=== PATIENT | male | born 1945 | race Caucasian/White ===

== ENCOUNTER 2020-04-21 08:19 | Outpatient (REF) | payer MEDICARE, SELFPAY ==
[2020-04-21 09:24] LABS: MANUAL DIFF FLAG NO
[2020-04-21 09:45] LABS: Basophils Percent Auto 0.3 % (0-2); Eosinophils Absolute Auto 0.1 X10*3/uL (0.0-0.4); Eosinophils Percent Auto 1.2 % (0-4); Hematocrit 45.4 % (42-52); Hemoglobin 14.9 g/dl (14.0-18.0); Imm Gran Abs Auto 0.02 X10*3/uL (0.00-0.03); Imm Gran Pct Auto 0.3 % (0.0-0.4); Lymphocytes Absolute Auto 3.1 X10*3/uL (1.2-4.9); Lymphocytes Percent Auto 43.1 % (20-40); Mean Corpuscular HGB Conc 32.8 g/dl (31.0-36.0); Mean Corpuscular Volume 91.5 fL (80-98); Mean Platelet Volume 10.6 fL (9.4-12.4); Monocytes Absolute Auto 0.6 X10*3/uL (0.1-1.2); Monocytes Percent Auto 8.7 % (2-11); Neutrophils Absolute Auto 3.4 X10*3/uL (2.0-8.3); Neutrophils Percent Auto 46.4 % (45-73); Platelet Count 201 X10*3/uL (160-400); Red Blood Count 4.96 X10*6/uL (4.60-5.80); Red Cell Distribution Width 12.2 % (11.0-16.0); White Blood Count 7.2 X10*3/uL (4.8-10.8)
[2020-04-21 10:08] LABS: Estimated Average Glucose 114 mg/dL; Hemoglobin A1c % 5.6 %
[2020-04-21 10:14] LABS: Appearance Urine CLEAR; Color Urine YELLOW; Glucose Urine UA NEG (NEG); Leukocyte Esterase Urine NEG (NEG); Nitrite Urine NEG (NEG); Urine Blood NEG (NEG); Urine Ketones NEG (NEG); Urine Protein NEG (NEG-TRACE)
[2020-04-21 10:21] LABS: Alanine Aminotransferase 17 U/L (0-40); Albumin Level 4.4 g/dL (3.5-5.0); Alkaline Phosphatase 62 U/L (39-117); Anion Gap 13 (12-20); Aspartate Amino Transferase 17 U/L (5-37); Bilirubin Total 1.2 mg/dL (0.0-1.0); Blood Urea Nitrogen 13 mg/dL (9-16); Calcium 8.8 mg/dL (8.4-10.2); Carbon Dioxide 28 mmol/L (22-29); Chloride 102 mmol/L (96-108); Cholesterol 214 mg/dL; Estimated Glomerular Filt Rate > 60; Glucose Fasting 102 mg/dL (60-99); HDL Cholesterol 45 mg/dL; LDL Cholesterol Calculated 139 mg/dl; Sodium 139 mmol/L (135-145); Total Protein 7.2 g/dL (6.5-8.0); Triglycerides 151 mg/dL
[2020-04-21 10:30] LABS: TSH reflex Free T4 3.18 mIU/mL (0.32-4.0)
[2020-04-21 10:51] LABS: Mucus Urine 1+ /LPF; RBC Urine 0 /HPF (0); Squamous Epithelial Cell Urine TRACE /LPF; WBC Urine 0-2 /HPF (0-4)
== END 2020-04-21 08:20 | disposition home or self-care (01) ==
LOC: HO.LAB 08:19
PROVIDERS: PCP Internal Medicine; Visit Provider Internal Medicine
DX: I10 Essential (primary) hypertension (principal); E78.2 Mixed hyperlipidemia; R73.01 Impaired fasting glucose; K21.9 Gastro-esophageal reflux disease without esophagitis
CPT/HCPCS: 36415; 80053; 80061; 81001; 83036; 84443; 85025

== ENCOUNTER 2020-09-07 07:42 | Outpatient (REF) | payer MEDICARE, SELFPAY ==
[2020-09-07 08:29] LABS: MANUAL DIFF FLAG NO
[2020-09-07 08:33] LABS: Basophils Percent Auto 0.3 % (0-2); Eosinophils Absolute Auto 0.2 X10*3/uL (0.0-0.4); Eosinophils Percent Auto 2.1 % (0-4); Hematocrit 42.9 % (42-52); Hemoglobin 14.4 g/dl (14.0-18.0); Imm Gran Abs Auto 0.01 X10*3/uL (0.00-0.03); Imm Gran Pct Auto 0.1 % (0.0-0.4); Lymphocytes Percent Auto 42.3 % (20-40); Mean Corpuscular HGB Conc 33.6 g/dl (31.0-36.0); Mean Corpuscular Hemoglobin 30.6 pg (27.0-33.0); Mean Corpuscular Volume 91.1 fL (80-98); Mean Platelet Volume 10.3 fL (9.4-12.4); Monocytes Absolute Auto 0.6 X10*3/uL (0.1-1.2); Monocytes Percent Auto 8.7 % (2-11); Neutrophils Absolute Auto 3.3 X10*3/uL (2.0-8.3); Neutrophils Percent Auto 46.5 % (45-73); Platelet Count 188 X10*3/uL (160-400); Red Blood Count 4.71 X10*6/uL (4.60-5.80); Red Cell Distribution Width 12.3 % (11.0-16.0); White Blood Count 7.1 X10*3/uL (4.8-10.8)
[2020-09-07 08:47] LABS: Glucose Urine UA NEG (NEG); Leukocyte Esterase Urine NEG (NEG); Nitrite Urine NEG (NEG); Urine Blood NEG (NEG); Urine Ketones 5 MG/DL (NEG); Urine Protein NEG (NEG-TRACE)
[2020-09-07 08:48] LABS: Appearance Urine CLEAR; Color Urine YELLOW
[2020-09-07 08:55] LABS: Alanine Aminotransferase 15 U/L (0-40); Albumin Level 4.4 g/dL (3.5-5.0); Alkaline Phosphatase 62 U/L (39-117); Anion Gap 13 (12-20); Aspartate Amino Transferase 17 U/L (5-37); Bilirubin Total 1.1 mg/dL (0.0-1.0); Blood Urea Nitrogen 15 mg/dL (9-16); Calcium 8.9 mg/dL (8.4-10.2); Carbon Dioxide 28 mmol/L (22-29); Chloride 103 mmol/L (96-108); Cholesterol 214 mg/dL; Estimated Glomerular Filt Rate > 60; Glucose Fasting 105 mg/dL (60-99); HDL Cholesterol 45 mg/dL; LDL Cholesterol Calculated 138 mg/dl; Potassium 4.3 mmol/L (3.3-5.1); Sodium 140 mmol/L (135-145); Total Protein 7.1 g/dL (6.5-8.0); Triglycerides 157 mg/dL
== END 2020-09-07 07:43 | disposition home or self-care (01) ==
LOC: HO.LAB 07:42
PROVIDERS: PCP Internal Medicine; Visit Provider Internal Medicine
DX: I10 Essential (primary) hypertension (principal); K21.9 Gastro-esophageal reflux disease without esophagitis; E78.2 Mixed hyperlipidemia; R73.01 Impaired fasting glucose
CPT/HCPCS: 36415; 80053; 80061; 81003; 85025

== ENCOUNTER 2021-03-08 07:44 | Outpatient (REF) | payer MEDICARE, SELFPAY ==
[2021-03-08 07:56] LABS: MANUAL DIFF FLAG NO
[2021-03-08 08:39] LABS: Basophils Percent Auto 0.1 % (0-2); Eosinophils Absolute Auto 0.2 X10*3/uL (0.0-0.4); Eosinophils Percent Auto 2.5 % (0-4); Hematocrit 47.4 % (42-52); Hemoglobin 15.5 g/dl (14.0-18.0); Imm Gran Abs Auto 0.01 X10*3/uL (0.00-0.03); Imm Gran Pct Auto 0.1 % (0.0-0.4); Lymphocytes Absolute Auto 4.2 X10*3/uL (1.2-4.9); Lymphocytes Percent Auto 49.1 % (20-40); Mean Corpuscular HGB Conc 32.7 g/dl (31.0-36.0); Mean Corpuscular Hemoglobin 29.9 pg (27.0-33.0); Mean Corpuscular Volume 91.5 fL (80-98); Mean Platelet Volume 10.6 fL (9.4-12.4); Monocytes Absolute Auto 0.8 X10*3/uL (0.1-1.2); Monocytes Percent Auto 9.4 % (2-11); Neutrophils Absolute Auto 3.3 X10*3/uL (2.0-8.3); Neutrophils Percent Auto 38.8 % (45-73); Platelet Count 233 X10*3/uL (160-400); Red Blood Count 5.18 X10*6/uL (4.60-5.80); Red Cell Distribution Width 12.5 % (11.0-16.0); White Blood Count 8.5 X10*3/uL (4.8-10.8)
[2021-03-08 08:42] LABS: Appearance Urine CLEAR; Color Urine YELLOW; Glucose Urine UA NEG (NEG); Leukocyte Esterase Urine NEG (NEG); Nitrite Urine NEG (NEG); Specific Gravity - Urine 1.015 (1.005-1.025); Urine Blood NEG (NEG); Urine Ketones 5 MG/DL (NEG); Urine Protein NEG (NEG-TRACE)
[2021-03-08 08:59] LABS: Estimated Average Glucose 114 mg/dL; Hemoglobin A1c % 5.6 %
[2021-03-08 09:07] LABS: Alanine Aminotransferase 19 U/L (0-40); Albumin Level 4.5 g/dL (3.5-5.0); Alkaline Phosphatase 63 U/L (39-117); Anion Gap 12 (12-20); Aspartate Amino Transferase 19 U/L (5-37); Bilirubin Total 0.9 mg/dL (0.0-1.0); Blood Urea Nitrogen 13 mg/dL (9-16); Calcium 9.3 mg/dL (8.4-10.2); Carbon Dioxide 28 mmol/L (22-29); Chloride 106 mmol/L (96-108); Cholesterol 237 mg/dL; Estimated Glomerular Filt Rate > 60; Glucose Fasting 105 mg/dL (60-99); HDL Cholesterol 47 mg/dL; LDL Cholesterol Calculated 162 mg/dl; Potassium 4.4 mmol/L (3.3-5.1); Sodium 142 mmol/L (135-145); Total Protein 7.2 g/dL (6.5-8.0); Triglycerides 141 mg/dL
[2021-03-08 09:20] LABS: TSH reflex Free T4 3.57 uIU/mL (0.32-4.0)
== END 2021-03-08 07:45 | disposition home or self-care (01) ==
LOC: HO.LAB 07:44
PROVIDERS: PCP Internal Medicine; Visit Provider Internal Medicine
DX: I10 Essential (primary) hypertension (principal); E78.2 Mixed hyperlipidemia; R73.01 Impaired fasting glucose; K21.9 Gastro-esophageal reflux disease without esophagitis
CPT/HCPCS: 36415; 80053; 80061; 81003; 83036; 84443; 85025

== ENCOUNTER 2021-09-15 07:00 | Outpatient (REF) | payer MEDICARE, SELFPAY ==
[2021-09-15 07:34] LABS: Basophils Percent Auto 0.1 % (0-2); Eosinophils Absolute Auto 0.2 X10*3/uL (0.0-0.4); Hematocrit 42.7 % (42.0-52.0); Hemoglobin 14.1 g/dl (14.0-18.0); Imm Gran Abs Auto 0.02 X10*3/uL (0.00-0.03); Imm Gran Pct Auto 0.3 % (0.0-0.4); Lymphocytes Absolute Auto 3.3 X10*3/uL (1.2-4.9); Lymphocytes Percent Auto 43.4 % (20-40); MANUAL DIFF FLAG SCAN; Mean Corpuscular Hemoglobin 30.8 pg (27.0-33.0); Mean Corpuscular Volume 93.2 fL (80.0-98.0); Mean Platelet Volume 11.7 fL (9.4-12.4); Monocytes Absolute Auto 0.7 X10*3/uL (0.1-1.2); Monocytes Percent Auto 8.6 % (2-11); Neutrophils Absolute Auto 3.5 x10*3/uL (2.0-8.3); Neutrophils Percent Auto 45.6 % (45-73); PLT CLUMP 1; Red Blood Count 4.58 X10*6/uL (4.60-5.80); Red Cell Distribution Width 12.5 % (11.0-16.0); SCAN SMEAR FLAG 1
[2021-09-15 07:53] LABS: Alanine Aminotransferase 19 U/L (0-40); Albumin Level 4.2 g/dL (3.5-5.0); Alkaline Phosphatase 59 U/L (39-117); Anion Gap 11 (12-20); Aspartate Amino Transferase 24 U/L (5-37); Bilirubin Total 0.9 mg/dL (0.0-1.0); Blood Urea Nitrogen 12 mg/dL (9-16); Calcium 9.3 mg/dL (8.4-10.2); Carbon Dioxide 25 mmol/L (22-29); Chloride 107 mmol/L (96-108); Cholesterol 231 mg/dL; Estimated Glomerular Filt Rate > 60; Glucose Fasting 104 mg/dL (60-99); HDL Cholesterol 47 mg/dL; LDL Cholesterol Calculated 152 mg/dl; Potassium 4.4 mmol/L (3.3-5.1); Sodium 139 mmol/L (135-145); Total Protein 7.2 g/dL (6.5-8.0); Triglycerides 162 mg/dL
[2021-09-15 08:12] LABS: Appearance Urine CLEAR; Color Urine YELLOW; Glucose Urine UA NEG (NEG); Leukocyte Esterase Urine NEG (NEG); Nitrite Urine NEG (NEG); Urine Blood NEG (NEG); Urine Ketones NEG (NEG); Urine Protein NEG (NEG-TRACE)
[2021-09-15 08:15] LABS: TSH reflex Free T4 2.54 uIU/mL (0.32-4.0); Vitamin D 25-OH Total 31.9 ng/mL (>30)
[2021-09-15 08:55] LABS: White Blood Count 7.7 X10*3/uL (4.8-10.8)
[2021-09-15 08:56] LABS: Platelet Count 138 X10*3/uL (160-400); SLIDE REVIEW VERIFIED
== END 2021-09-15 07:01 | disposition home or self-care (01) ==
LOC: HO.LAB 07:00
PROVIDERS: PCP Internal Medicine; Visit Provider Internal Medicine
DX: I10 Essential (primary) hypertension (principal); E78.00 Pure hypercholesterolemia, unspecified; E55.9 Vitamin D deficiency, unspecified
CPT/HCPCS: 36415; 80053; 80061; 81003; 82306; 84443; 85025

== ENCOUNTER 2022-03-09 07:30 | Outpatient (REF) | payer MEDICARE, SELFPAY ==
[2022-03-09 07:54] LABS: MANUAL DIFF FLAG NO
[2022-03-09 08:00] LABS: Basophils Percent Auto 0.3 % (0-2); Eosinophils Absolute Auto 0.2 X10*3/uL (0.0-0.4); Eosinophils Percent Auto 2.4 % (0-4); Hematocrit 40.9 % (42.0-52.0); Hemoglobin 14.2 g/dl (14.0-18.0); Imm Gran Abs Auto 0.01 X10*3/uL (0.00-0.03); Imm Gran Pct Auto 0.1 % (0.0-0.4); Lymphocytes Absolute Auto 3.3 X10*3/uL (1.2-4.9); Lymphocytes Percent Auto 43.8 % (20-40); Mean Corpuscular HGB Conc 34.7 g/dl (31.0-36.0); Mean Corpuscular Hemoglobin 32.2 pg (27.0-33.0); Mean Corpuscular Volume 92.7 fL (80.0-98.0); Mean Platelet Volume 10.1 fL (9.4-12.4); Monocytes Absolute Auto 0.7 X10*3/uL (0.1-1.2); Monocytes Percent Auto 8.6 % (2-11); Neutrophils Absolute Auto 3.4 x10*3/uL (2.0-8.3); Neutrophils Percent Auto 44.8 % (45-73); Platelet Count 167 X10*3/uL (160-400); Red Blood Count 4.41 X10*6/uL (4.60-5.80); Red Cell Distribution Width 12.8 % (11.0-16.0); White Blood Count 7.5 X10*3/uL (4.8-10.8)
[2022-03-09 08:39] LABS: Alanine Aminotransferase 14 U/L (0-40); Albumin Level 4.5 g/dL (3.5-5.0); Alkaline Phosphatase 65 U/L (39-117); Anion Gap 15 (12-20); Aspartate Amino Transferase 18 U/L (5-37); Bilirubin Total 0.8 mg/dL (0.0-1.0); Blood Urea Nitrogen 14 mg/dL (9-16); Calcium 9.1 mg/dL (8.4-10.2); Carbon Dioxide 26 mmol/L (22-29); Chloride 105 mmol/L (96-108); Cholesterol 207 mg/dL; Estimated Glomerular Filt Rate > 60; Glucose Fasting 101 mg/dL (60-99); HDL Cholesterol 49 mg/dL; LDL Cholesterol Calculated 132 mg/dl; Sodium 142 mmol/L (135-145); Total Protein 7.1 g/dL (6.5-8.0); Triglycerides 131 mg/dL
[2022-03-09 08:45] LABS: TSH reflex Free T4 2.47 uIU/mL (0.32-4.0); Vitamin D 25-OH Total 32.3 ng/mL (>30)
[2022-03-09 10:09] LABS: Appearance Urine Clear; Color Urine Yellow; Glucose Urine UA Negative (Negative); Leukocyte Esterase Urine Negative (Negative); Nitrite Urine Negative (Negative); PH 5.5 (5.0-9.0); Specific Gravity - Urine 1.015 (1.005-1.025); Urine Blood Negative (Negative); Urine Ketones Negative (Negative); Urine Protein Negative (Neg-Trace)
== END 2022-03-09 07:31 | disposition home or self-care (01) ==
LOC: HO.LAB 07:30
PROVIDERS: PCP Internal Medicine; Visit Provider Internal Medicine
DX: E78.00 Pure hypercholesterolemia, unspecified (principal); E55.9 Vitamin D deficiency, unspecified; I10 Essential (primary) hypertension
CPT/HCPCS: 36415; 80053; 80061; 81003; 82306; 84443; 85025

== ENCOUNTER → 2022-05-27 13:53 | Outpatient (REF) | payer MEDICARE, SELFPAY ==
--- NOTE | 2022-05-27 13:56 | HM_ITS ---
* Total monitoring time 3 days. * Underlying rhythm is sinus. Average ventricular rate 60/Min. Range 41 to 93/Min. * About 60% the time, rate less than 60/Min. * Frequent PVCs with a burden of 3.5%. Occasional bigeminy, trigeminy and couplets. * Rare PACs with minimal burden. * Sleep time pauses up to 2.6 seconds, not significant. * No patient markers or diary. MTDD
--- NOTE | 2022-05-27 13:56 | CA_ITS ---
Transthoracic Echocardiogram Patient (Last, First, Middle): Marcial Robb V Gender: Male Date of : 1945 Age: 76 Procedure Date: 05/27/2022 Procedure Type: Transthoracic Echocardiogram Location: OP Height: 170.18 cm Weight: 68.95 kg BSA: 1.80 m2 Heart Rate: 61 bpm BP: 145 / 80 mmHg Clinical Training Specialist: SUZY Referring MD: Ion Kwong MD Symptoms: G45.9 - Transient cerebral ischemic attack, unspecified Study Quality: Adequate ECG Rhythm: Sinus Conclusions: - Normal left ventricular cavity size. There is normal left ventricular wall thickness. The left ventricular systolic function is low normal. The visually estimated ejection fraction is between 50-55%. - E/E prime ratio is between 8 and 15 consistent with indeterminate filling pressures. - Normal right ventricular cavity size. There is borderline right ventricular systolic function. - The left atrium is mildly dilated. - There is mild dilatation of the sinuses of Valsalva measuring 3.90 cm. Findings Left Ventricle Normal left ventricular cavity size. There is normal left ventricular wall thickness. The left ventricular systolic function is low normal. The visually estimated ejection fraction is between 50-55%. There is no evidence of regional wall motion abnormalities. Abnormal diastolic function is noted. Spectral Doppler is indicative of a pseudonormal filling pattern. E/E prime ratio is between 8 and 15 consistent with indeterminate filling pressures. Right Ventricle Normal right ventricular cavity size. There is borderline right ventricular systolic function. Atria The left atrium is mildly dilated. There is no evidence of interatrial shunt by color Doppler. Aortic Valve Normal aortic valve structure and function. There is no aortic valve stenosis. There is trace (trivial) aortic valve regurgitation. Mitral Valve The mitral valve appears normal. There is mild mitral valve regurgitation. There is no mitral valve stenosis. Pulmonic Valve The pulmonic valve is likely normal. Tricuspid Valve Normal tricuspid valve structure and function. There is trace tricuspid valve regurgitation. Normal right atrial pressure. There is no evidence of pulmonary hypertension. Great Vessels There is mild dilatation of the sinuses of Valsalva measuring 3.90 cm. The visualized portions of the pulmonary artery and branches are normal. Venous The inferior vena cava is normal in size and collapses greater than 50% with inspiration. Pericardium/Pleural There is no evidence of pericardial effusion. Prior Study Comparison No prior study available for comparison. Measurements 2D Linear Measurements IVSd: 0.76 0.6-0.9/0.6-1.0 cm LVIDd: 4.84 3.9-5.3/4.2-5.9 cm LVIDd Index: 2.69 2.4-3.2/2.2-3.1 cm/m2 LVIDs: 3.21 2.0-3.6 cm LVPWd: 0.85 0.7-1.1 cm LA Diam: 3.30 2.7-3.8/3.0-4.0 cm LAIDs Index: 1.83 1.5-2.3 cm/m2 LV Mass: 160.64 67-162/88-224 g LV Mass Index: 89.24 43-95/49-115 g/m2 LVOT Diam: 2.20 3.0+(-)1.3 cm 2D Systolic Function EF 4C: 54.90 >55% EF 2C: 53.60 >55% EF BiP: 55.60 >55% Mitral Valve MV Pk E: 0.78 MV PK A: 0.81 MV Decel Time: 208.00 E/A: 1.00 E'Lateral: 9.02 E'Medial: 7.27 E/E' Med: 10.80 E/E' Lat: 8.70 PHT: 61.00 MVA PHT: 3.61 Decel [place]: 3.78 Aortic Valve AoV Pk Caden: 1.17 AoV Mn Caden: 0.82 AoV VTI: 0.28 AoV Pk Grad: 5.00 Aov Mn Grad: 3.00 KYE Cont.VTI: 2.81 AI Pk Caden: 3.85 AI [place]: 2.64 LVOT LVOT Pk Caden: 0.85 LVOT Mn Caden: 0.57 LVOT VTI: 0.21 LVOT Pk Grad: 3.00 LVOT Mn Grad: 2.00 LVOT Diam: 2.20 LVOT Area: 3.80 Diastolic Function MV Pk E: 0.78 MV Pk A: 0.81 E/A: 1.00 E'Medial: 7.27 E/E' Med: 10.80 E' Laterial: 9.02 E/E' Lat: 8.70 Right Ventricle TAPSE (mm): 23.90 TVS' Caden: 10.80 Tricuspid Valve TR Pk Caden: 2.34 TR Pk Grad: 22.00 RA Press: 3.00 RVSP: 25.00 Great Vessels Aorta Sinus of Valsalva: 3.90 2.0-3.5 cm Ao Asc: 3.40 2.1-3.4 cm Pulmonary Valve PV Pk Caden: 0.80 Peak PV Grad: 3.00 Updated in Other Vendor System with Status of Final Bipin Khan MD electronically signed on 05/29/2022 12:10:18 PM with status of Final
== END ==
LOC: HO.CARD 13:53
PROVIDERS: PCP Internal Medicine; Visit Provider Internal Medicine
DX: I63.81 Other cerebral infarction due to occlusion or stenosis of small artery (principal); G45.9 Transient cerebral ischemic attack, unspecified
CPT/HCPCS: 93242; 93306

== ENCOUNTER 2022-06-06 06:37 | Outpatient (REF) | payer MEDICARE, SELFPAY ==
[2022-06-06 06:48] LABS: MANUAL DIFF FLAG NO
[2022-06-06 07:28] LABS: Basophils Percent Auto 0.3 % (0-2); Eosinophils Absolute Auto 0.1 X10*3/uL (0.0-0.4); Eosinophils Percent Auto 1.6 % (0-4); Hematocrit 42.7 % (42.0-52.0); Hemoglobin 14.2 g/dl (14.0-18.0); Imm Gran Abs Auto 0.02 X10*3/uL (0.00-0.03); Imm Gran Pct Auto 0.3 % (0.0-0.4); Lymphocytes Absolute Auto 3.5 X10*3/uL (1.2-4.9); Lymphocytes Percent Auto 44.5 % (20-40); Mean Corpuscular HGB Conc 33.3 g/dl (31.0-36.0); Mean Corpuscular Hemoglobin 30.7 pg (27.0-33.0); Mean Corpuscular Volume 92.2 fL (80.0-98.0); Mean Platelet Volume 10.8 fL (9.4-12.4); Monocytes Absolute Auto 0.7 X10*3/uL (0.1-1.2); Monocytes Percent Auto 8.5 % (2-11); Neutrophils Absolute Auto 3.5 x10*3/uL (2.0-8.3); Neutrophils Percent Auto 44.8 % (45-73); Platelet Count 197 X10*3/uL (160-400); Red Blood Count 4.63 X10*6/uL (4.60-5.80); Red Cell Distribution Width 12.5 % (11.0-16.0); White Blood Count 7.9 X10*3/uL (4.8-10.8)
[2022-06-06 07:45] LABS: Estimated Average Glucose 108 mg/dL; Hemoglobin A1c % 5.4 %
[2022-06-06 07:59] LABS: Alanine Aminotransferase 30 U/L (0-40); Albumin Level 4.4 g/dL (3.5-5.0); Alkaline Phosphatase 68 U/L (39-117); Anion Gap 13 (12-20); Aspartate Amino Transferase 20 U/L (5-37); Bilirubin Total 0.9 mg/dL (0.0-1.0); Blood Urea Nitrogen 14 mg/dL (9-16); Calcium 9.2 mg/dL (8.4-10.2); Carbon Dioxide 28 mmol/L (22-29); Chloride 105 mmol/L (96-108); Cholesterol 155 mg/dL; Estimated Glomerular Filt Rate > 60; Glucose Fasting 93 mg/dL (60-99); HDL Cholesterol 51 mg/dL; LDL Cholesterol Calculated 81 mg/dl; Potassium 4.3 mmol/L (3.3-5.1); Sodium 142 mmol/L (135-145); Total Protein 6.9 g/dL (6.5-8.0); Triglycerides 116 mg/dL
== END 2022-06-06 06:38 | disposition home or self-care (01) ==
LOC: HO.LAB 06:37
PROVIDERS: PCP Internal Medicine; Visit Provider Internal Medicine
DX: I10 Essential (primary) hypertension (principal); E78.00 Pure hypercholesterolemia, unspecified; R73.01 Impaired fasting glucose
CPT/HCPCS: 36415; 80053; 80061; 83036; 85025

== ENCOUNTER 2022-09-07 06:57 | Outpatient (REF) | payer MEDICARE, SELFPAY ==
[2022-09-07 07:34] LABS: Estimated Average Glucose 114 mg/dL; Hemoglobin A1C 149.2695 umol/L; Hemoglobin A1c % 5.6 %
[2022-09-07 07:44] LABS: Alanine Aminotransferase 30 U/L (0-40); Albumin Level 4.4 g/dL (3.5-5.0); Alkaline Phosphatase 70 U/L (39-117); Anion Gap 12 (12-20); Aspartate Amino Transferase 22 U/L (5-37); Bilirubin Total 1.3 mg/dL (0.0-1.0); Blood Urea Nitrogen 13 mg/dL (9-16); Calcium 9.1 mg/dL (8.4-10.2); Carbon Dioxide 27 mmol/L (22-29); Chloride 106 mmol/L (96-108); Cholesterol 145 mg/dL; Estimated Glomerular Filt Rate > 60; Glucose Fasting 104 mg/dL (60-99); HDL Cholesterol 49 mg/dL; LDL Cholesterol Calculated 78 mg/dl; Potassium 4.3 mmol/L (3.3-5.1); Sodium 141 mmol/L (135-145); Total Protein 6.8 g/dL (6.5-8.0); Triglycerides 92 mg/dL
[2022-09-07 08:32] LABS: Appearance Urine Clear; Color Urine Yellow; Glucose Urine UA Negative (Negative); Leukocyte Esterase Urine Trace (Negative); Nitrite Urine Negative (Negative); PH 5.5 (5.0-9.0); Specific Gravity - Urine 1.015 (1.005-1.025); UMIC TRIGGER UACC YES; Urine Blood Negative (Negative); Urine Ketones Negative (Negative); Urine Protein Negative (Neg-Trace)
[2022-09-07 08:38] LABS: Bacteria Urine None Seen (None Seen); Hyaline Casts Urine 0-2 /LPF (0-2); RBC Urine 0-2 /HPF (0-2); Squamous Epithelial Cell Urine 0-2 /HPF (0-2); WBC Urine 0-5 /HPF (0-5)
== END 2022-09-07 06:58 | disposition home or self-care (01) ==
LOC: HO.LAB 06:57
PROVIDERS: PCP Internal Medicine; Visit Provider Internal Medicine
DX: E78.00 Pure hypercholesterolemia, unspecified (principal); R73.01 Impaired fasting glucose
CPT/HCPCS: 36415; 80053; 80061; 81001; 83036

== ENCOUNTER 2022-09-20 13:23 | Outpatient (AMB) | payer MEDICARE, SELFPAY ==
[2022-09-20 13:26] VITALS: BP 130/72; PULSE 57; O2SAT 95; BMI 24.3
--- NOTE | 2022-09-20 13:26 | MHC.PC.OV ---
Vital Signs 09/20/22 13:26 Height 5 ft 7 in Weight 155 lb 2 oz BMI 24.3 BP 130/72 Blood Pressure Location Lt brachial Position Sitting Pulse 57 Pulse Source Pulse Oximeter Pulse Oximetry (%) 95 Oxygen Delivery Method Room Air Intake Visit Reasons: hyperlipidemia, HTN, IFG Intake Note: Patient is here to follow up hyperlipidemia, HTN, and IFG. Sand Drier Required: No Accompanied by: Self / Same As Patient Allergies vaccine adjuvant system, AS01B lipo [Shingrix (PF)] Adverse Reaction (Unknown, Verified 03/28/23 13:56) flu-like symptoms, bruising, fever varicella-zoster virus glycoprotein [Shingrix (PF)] Adverse Reaction (Unknown, Verified 03/28/23 13:56) flu-like symptoms, bruising, fever Medication List - Last Reconciled 09/20/22 by Ion Kwong MD aspirin (Adult Aspirin Regimen) 81 mg PO DAILY atorvastatin 10 mg PO BEDTIME 90 days bimatoprost 0.01% (Lumigan) 1 drp ophthalmic (eye) QPM brimonidine 0.1% 1 drp ophthalmic (eye) Q8H dorzolamide-timolol 22.3-6.8 mg/mL 1 drp ophthalmic (eye) BID lisinopril 20 mg PO DAILY metoprolol succinate ER 25 mg PO DAILY Tobacco use date assessed: 09/20/22 Fall risk assessment: No Falls in past year HPI hyperlipidemia, HTN, IFG HPI Details Patient comes in today for his follow up visit States that he feels okay Denies any headaches or dizziness Denies any chest pains, no SOB No nausea/vomiting, no abdominal pain No change in bowel habits noted Needs his Sildenafil Rx refilled Had his follow up labs done a couple of weeks ago - to discuss his results [facility] Medical History Cryptogenic stroke Glaucoma of both eyes Erectile dysfunction GERD without esophagitis Impaired fasting glucose Mixed hyperlipidemia Benign essential hypertension Surgical History Hx of colonoscopy (~05/02/14) H/O basal cell carcinoma excision Family History Father Colon cancer Mother No problems noted. Social History Housing: House Alcohol intake: current Alcohol intake frequency: holidays/special occasions only Patient Tobacco Use Status: Never used Tobacco e-Cigarette/Vaping Use: Never Used Second Hand Smoke Exposure: Yes service: Yes Current occupational status: retired Cognitive needs: No Hearing needs: No Vision needs: Yes Questionnaire PHQ-9 Over the last 2 weeks, how often have you been bothered by any of the following problems? 1. Little interest or pleasure in doing things: not at all 2. Feeling down, depressed, or hopeless: not at all 3. Trouble falling or staying asleep, or sleeping too much: not at all 4. Feeling tired or having little energy: not at all 5. Poor appetite or overeating: not at all 6. Feeling bad about yourself - or that you are a failure or have let yourself or your family down: not at all 7. Trouble concentrating on things, such as reading the newspaper or watching television: not at all 8. Moving or speaking so slowly that other people could have noticed. Or the opposite - being so fidgety or restless that you have been moving around a lot more than usual: not at all 9. Thoughts that you would be better off or of hurting yourself in some way: not at all Total score: 0 Depression Screening Interpretation: Negative [id number] - PHQ-9 Billing: Yes Source: Developed by Drs. Iban Moreland, Eleni Nicole, Vimal House and colleagues, with an educational daniel from [employer]. Thrive Questionnaire Date Thrive assessed: 09/20/22 I am a: Patient What is your living situation today?: I have a steady place to live Within the past 12 months, did the food you bought not last and you didn't have the money to get more?: Never true Within the past 12 months, did you worry whether your food would run out before you got money to buy more?: Never true Do you have trouble paying for medicines?: No Do you have trouble getting transportation to medical appointments?: No Do you have trouble paying your heating and electricity bill?: No Do you have trouble taking care of your child, family member or friend?: No Do you have trouble with day-to-day activities such as bathing, preparing meals, shopping, managing finances, etc.?: No Are you currently unemployed and looking for a job?: No Are you interested in more education?: No Currently or been in a relationship where the following occur: no concerns reported AUDIT C Alcohol Use Questionnaire (AUDIT-C) 1. How often do you have a drink containing alcohol?: Monthly or less 2. How many drinks containing alcohol do you have on a typical day when you are drinking?: 1 or 2 Total Score: 1 Score Reviewed/Action Taken: Yes CARI-7 AMB Questionnaire CARI-7 Date CARI - 7 assessed: 09/20/22 Feeling nervous, anxious, or on edge: 0 = Not at all Not being able to stop or control worryin = Not at all Worrying too much about different things: 0 = Not at all Trouble relaxin = Not at all Being so restless that it is hard to sit still: 0 = Not at all Becoming easily annoyed or irritable: 0 = Not at all Feeling afraid as if something awful might happen: 0 = Not at all Total CARI-7 score (0-4 normal; 5-9 mild; 10-14 moderate; 15-21 severe): 0 Source: Developed by Drs. Iban Moreland, Eleni Nicole, Vimal House and colleagues, with an educational daniel from [employer]. Review of Systems Const Denies fatigue, Denies fever(s) and Denies headache(s) ENT Denies dysphagia, Denies dizziness, Denies headache(s), Denies odynophagia, Denies sinus pain and Denies sore throat Card Denies chest pain, Denies palpitations and Denies dyspnea Resp Denies cough and Denies dyspnea GI Denies abdominal pain, Reports constipation (recently), Denies dysphagia, Denies heartburn, Denies nausea, Denies odynophagia and Denies vomiting Denies dysuria, Denies nocturia and Denies urinary frequency Musc Denies muscle weakness Skin/Breast Denies rash Neuro Denies dizziness and Denies headache(s) Endo Denies fatigue and Denies palpitations Physical exam (Primary Care) Vital Signs: Last Vital Signs Pulse 57 09/20/22 13:26 BP 130/72 09/20/22 13:26 Pulse Ox 95 09/20/22 13:26 Oxygen Delivery Method Room Air 09/20/22 13:26 BMI result Body Mass Index 24.3 Tobacco/Smoking Status: Tobacco use Status Tobacco use date assessed 09/20/22 09/20/22 13:33 Patient Tobacco Use Status Never used Tobacco 09/20/22 13:33 e-Cigarette/Vaping Use Never Used 09/20/22 13:33 PHQ-9: PHQ-9 Score PHQ-9: Total score 0 09/20/22 13:48 Depression Screening Interpretation: Negative Thrive Assessment: Date of Thrive Assessment Date Thrive assessed 09/20/22 09/20/22 13:33 Currently or been in a relationship where the following occur: no concerns reported Const General: no acute distress and alert HENMT Ears: TM's normal bilaterally and EAC's normal Throat: Yes posterior oropharynx normal and Yes tonsils normal (no TP congestion noted) Neck Neck: Yes no lymphadenopathy and Yes supple Resp Auscultation: clear to auscultation bilaterally, no rales and no wheezes Cardio Rate: regular rate Rhythm: regular rhythm Heart sounds: no murmurs GI Palpation (GI): Soft to palpation, nontender and No hepatosplenomegaly present Extrem General: Yes no clubbing, cyanosis or edema Results Reviewed Results Reviewed: Laboratory Tests 09/07/22 09/07/22 09/07/22 07:00 07:07 07:07 Sodium 141 Potassium 4.3 Creatinine 1.06 Estimated GFR > 60 Fasting Glucose 104 H Hemoglobin A1c % 5.6 Calcium 9.1 Total Bilirubin 1.3 H AST 22 ALT 30 Triglycerides 92 Cholesterol 145 LDL Cholesterol, Calc 78 HDL Cholesterol 49 Ur Specific [place] 1.015 Urine Protein Negative Urine Glucose (UA) Negative Urine Blood Negative Assessment and Plan Assessment & Plan (1) Cryptogenic stroke: Code(s): I63.9 - Cerebral infarction, unspecified Plan: Brain MRI done at [facility] on 04/24/22 revealed (+) scattered right frontal aubacute cortical infarct without hemorrhagic transformation and chronic right pontine and right cerebellar lacunar infarcts and chronic medial left frontal lobe infarct Continue Aspirin 81 mg QD; S/P dual antiplatelet Tx with Clopidogrel x 3 weeks residential monitor done previously was negative for AF or arrhythmias; echocardiogram showed normal EF, no intracardiac thrombus but left atrium was mildly dilated Was seen by [facility] Neurology for follow up yesterday and was advised further evaluation of his CVA etiology with an implantable loop recorder Will refer patient to cardiology for consideration for implantation of a loop recorder (2) Benign essential hypertension: Code(s): I10 - Essential (primary) hypertension Plan: Reinforced low sodium diet - goal is systolic BP of at least 140 to 150 mm or less Continue Lisinopril 20 mg QD and Metoprolol ER 25 mg QD (3) Mixed hyperlipidemia: Code(s): E78.2 - Mixed hyperlipidemia Plan: Results of his labs done a couple of weeks ago reviewed and discussed with patient - lipids have improved significantly from previous Reinforced low cholesterol diet Continue Atorvastatin 10 mg QD Will recheck his labs in 6 months for follow up (4) Impaired fasting glucose: Code(s): R73.01 - Impaired fasting glucose Plan: HgbA1c was normal at 5.6% when checked last year and again a couple of weeks ago Reinforced low calorie diet/exercise as tolerated (5) GERD without esophagitis: Code(s): K21.9 - Gastro-esophageal reflux disease without esophagitis Plan: Dietary restrictions reinforced (6) Erectile dysfunction: Code(s): N52.9 - Male erectile dysfunction, unspecified Qualifiers: Erectile dysfunction type: unspecified Qualified Code(s): N52.9 - Male erectile dysfunction, unspecified Plan: Continue Sildenafil 100 mg QD PRN (7) Glaucoma of both eyes: Code(s): H40.9 - Unspecified glaucoma Qualifiers: Glaucoma type: unspecified Qualified Code(s): H40.9 - Unspecified glaucoma Plan: Continue Alphagan 0.15% 1 drop into each eye 3 times a day, Cosopt 1 drop into each eye twice a day and Lumigan 1 drop into each eye once a day at bedtime Follow up with Ophthalmology (Dr. Kwok) as scheduled Plan Follow up in 6 months Orders: Orders Complete Blood Count Auto Diff 6 Months I10 - Essential (primary) hypertension TSH reflex Free T4 6 Months E78.00 - Pure hypercholesterolemia, unspecified Comprehensive Ventress. Panel Fast 6 Months E78.00 - Pure hypercholesterolemia, unspecified Lipid Panel 6 Months E78.00 - Pure hypercholesterolemia, unspecified UA CC w/rflx Micro + Cult 6 Months R30.0 - Dysuria Vitamin D 25-OH Total 6 Months E55.9 - Vitamin D deficiency, unspecified Medications: New sildenafil administer 30 minutes to 4 hours before activity 50 mg PO DAILY PRN 10 tabs 0RF sexual activity sildenafil administer 30 minutes to 4 hours before activity 100 mg PO DAILY PRN 10 tabs 0RF sexual activity Coding Level of Care Code Est Pt Level 4 (81485) Diagnoses Cryptogenic stroke I63.9 Benign essential hypertension I10 Mixed hyperlipidemia E78.2 Impaired fasting glucose R73.01 GERD without esophagitis K21.9 Erectile dysfunction, unspecified erectile dysfunction type N52.9 Erectile dysfunction type: unspecified Glaucoma of both eyes, unspecified glaucoma type H40.9 Glaucoma type: unspecified
== END 2022-09-20 14:03 | disposition home or self-care (01) ==
LOC: HO.HMGH 13:23
PROVIDERS: PCP Internal Medicine; Visit Provider Internal Medicine
DX: I10 Essential (primary) hypertension (principal); E78.2 Mixed hyperlipidemia; Z86.73 Personal history of transient ischemic attack (TIA), and cerebral infarction without residual deficits; R73.01 Impaired fasting glucose; K21.9 Gastro-esophageal reflux disease without esophagitis; N52.9 Male erectile dysfunction, unspecified; H40.9 Unspecified glaucoma
CPT/HCPCS: 99214

== ENCOUNTER 2023-03-13 07:15 | Outpatient (REF) | payer MEDICARE, SELFPAY ==
[2023-03-13 07:31] LABS: MANUAL DIFF FLAG NO
[2023-03-13 08:41] LABS: Basophils Percent Auto 0.3 % (0-2); Eosinophils Absolute Auto 0.1 X10*3/uL (0.0-0.4); Eosinophils Percent Auto 1.8 % (0-4); Hematocrit 42.1 % (42.0-52.0); Hemoglobin 13.8 g/dl (14.0-18.0); Imm Gran Abs Auto 0.01 X10*3/uL (0.00-0.03); Imm Gran Pct Auto 0.1 % (0.0-0.4); Lymphocytes Absolute Auto 3.4 X10*3/uL (1.2-4.9); Lymphocytes Percent Auto 47.2 % (20-40); Mean Corpuscular HGB Conc 32.8 g/dl (31.0-36.0); Mean Corpuscular Hemoglobin 30.4 pg (27.0-33.0); Mean Corpuscular Volume 92.7 fL (80.0-98.0); Mean Platelet Volume 11.1 fL (9.4-12.4); Monocytes Absolute Auto 0.6 X10*3/uL (0.1-1.2); Monocytes Percent Auto 8.3 % (2-11); Neutrophils Absolute Auto 3.1 x10*3/uL (2.0-8.3); Neutrophils Percent Auto 42.3 % (45-73); Platelet Count 164 X10*3/uL (160-400); Red Blood Count 4.54 X10*6/uL (4.60-5.80); Red Cell Distribution Width 12.4 % (11.0-16.0); White Blood Count 7.2 X10*3/uL (4.8-10.8)
[2023-03-13 09:00] LABS: Appearance Urine Clear; Color Urine Yellow; Glucose Urine UA Negative (Negative); Leukocyte Esterase Urine Trace (Negative); Nitrite Urine Negative (Negative); Specific Gravity - Urine 1.015 (1.005-1.025); UMIC TRIGGER UACC YES; Urine Blood Negative (Negative); Urine Ketones Trace mg/dL (Negative); Urine Protein Negative (Neg-Trace)
[2023-03-13 09:05] LABS: Bacteria Urine None Seen (None Seen); Hyaline Casts Urine 0-2 /LPF (0-2); RBC Urine 0-2 /HPF (0-2); Squamous Epithelial Cell Urine 0-2 /HPF (0-2); WBC Urine 0-5 /HPF (0-5)
[2023-03-13 09:18] LABS: Alanine Aminotransferase 22 U/L (0-40); Albumin Level 4.3 g/dL (3.5-5.0); Alkaline Phosphatase 63 U/L (39-117); Anion Gap 14 (12-20); Aspartate Amino Transferase 21 U/L (5-37); Blood Urea Nitrogen 13 mg/dL (9-16); Calcium 9.4 mg/dL (8.4-10.2); Carbon Dioxide 26 mmol/L (22-29); Chloride 106 mmol/L (96-108); Cholesterol 141 mg/dL (<200); Estimated Glomerular Filt Rate > 60; Glucose Fasting 95 mg/dL (60-99); HDL Cholesterol 48 mg/dL (>40); LDL Cholesterol Calculated 74 mg/dL (<100); Sodium 142 mmol/L (135-145); Total Protein 7.2 g/dL (6.5-8.0); Triglycerides 99 mg/dL (<150)
[2023-03-13 09:25] LABS: TSH reflex Free T4 3.14 uIU/mL (0.32-4.0); Vitamin D 25-OH Total 43.2 ng/mL (>30)
== END 2023-03-13 07:16 | disposition home or self-care (01) ==
LOC: HO.LAB 07:15
PROVIDERS: PCP Internal Medicine; Visit Provider Internal Medicine
DX: I10 Essential (primary) hypertension (principal); E78.00 Pure hypercholesterolemia, unspecified; E55.9 Vitamin D deficiency, unspecified; R30.0 Dysuria
CPT/HCPCS: 36415; 80053; 80061; 81001; 81003; 82306; 84443; 85025

== ENCOUNTER 2023-03-28 13:19 | Outpatient (AMB) | payer MEDICARE, SELFPAY ==
[2023-03-28 13:21] VITALS: BP 122/70; PULSE 69; O2SAT 99; BMI 24.3
--- NOTE | 2023-03-28 13:21 | A.OFFPC_ITS ---
Vital Signs 03/28/23 13:21 Height 5 ft 7 in Weight 155 lb BMI 24.3 BP 122/70 Blood Pressure Location Lt brachial Position Sitting Pulse 69 Pulse Source Pulse Oximeter Pulse Oximetry (%) 99 Oxygen Delivery Method Room Air Intake Visit Reasons: HTN, CVA, hyperlipidemia Staff Physician Required: No Accompanied by: Self / Same As Patient Allergies vaccine adjuvant system, AS01B lipo [Shingrix (PF)] Adverse Reaction (Unknown, Verified 03/28/23 13:56) flu-like symptoms, bruising, fever varicella-zoster virus glycoprotein [Shingrix (PF)] Adverse Reaction (Unknown, Verified 03/28/23 13:56) flu-like symptoms, bruising, fever Medication List - Last Reconciled 03/28/23 by Ion Kwong MD aspirin (Adult Aspirin Regimen) 81 mg PO DAILY atorvastatin 10 mg PO BEDTIME 90 days bimatoprost 0.01% (Lumigan) 1 drp ophthalmic (eye) QPM brimonidine 0.1% 1 drp ophthalmic (eye) Q8H dorzolamide-timolol 22.3-6.8 mg/mL 1 drp ophthalmic (eye) BID lisinopril 20 mg PO DAILY metoprolol succinate ER 25 mg PO DAILY netarsudil 0.02% (Rhopressa) 1 drp ophthalmic (eye) QPM sildenafil 100 mg PO DAILY PRN Tobacco use date assessed: 03/28/23 Fall risk assessment: No Falls in past year Last assessed Fall Risk: 03/28/23 Dental Screening Dental Screen Date: 03/28/23 Did you have a dental visit in the last 12 months?: Yes Did you have a dental problem in the last 6 months where you did not have access to dental care?: No Was dental information given to patient?: Patient has dentist HPI HTN, CVA, hyperlipidemia HPI Details Patient comes in today for his follow up visit States that he feels okay He denies any headaches or dizziness Denies any chest pains, no SOB No nausea/vomiting, no abdominal pain No change in bowel habits noted Was referred to cardiology previously to get a loop recorder implanted, per neurology recommendations, to help identify what potentially led to patient's cryptogenic stroke that he had last year - he was originally scheduled to have the loop recorder implanted next week but as he is traveling to [place] to be with family for the holidays, this was rescheduled to early next month Had his follow up labs done a couple of weeks ago - to discuss his results [facility] Medical History Cryptogenic stroke Glaucoma of both eyes Erectile dysfunction GERD without esophagitis Impaired fasting glucose Mixed hyperlipidemia Benign essential hypertension Surgical History Hx of colonoscopy (~05/02/14) H/O basal cell carcinoma excision Family History Father Colon cancer Mother No problems noted. Social History Housing: House Alcohol intake: current Alcohol intake frequency: holidays/special occasions only Patient Tobacco Use Status: Never used Tobacco e-Cigarette/Vaping Use: Never Used Second Hand Smoke Exposure: Yes service: Yes Current occupational status: retired Cognitive needs: No Hearing needs: No Vision needs: Yes Questionnaire PHQ-9 Over the last 2 weeks, how often have you been bothered by any of the following problems? 1. Little interest or pleasure in doing things: not at all 2. Feeling down, depressed, or hopeless: not at all 3. Trouble falling or staying asleep, or sleeping too much: not at all 4. Feeling tired or having little energy: not at all 5. Poor appetite or overeating: not at all 6. Feeling bad about yourself - or that you are a failure or have let yourself or your family down: not at all 7. Trouble concentrating on things, such as reading the newspaper or watching television: not at all 8. Moving or speaking so slowly that other people could have noticed. Or the opposite - being so fidgety or restless that you have been moving around a lot more than usual: not at all 9. Thoughts that you would be better off or of hurting yourself in some way: not at all Total score: 0 Depression Screening Interpretation: Negative Depression Screening Done: Yes 70465 - PHQ-9 Billing: Yes Source: Developed by Drs. Iban Moreland, Vimal Cevallos and colleagues, with an educational daniel from [employer] Thrive Questionnaire Date Thrive assessed: 03/28/23 I am a: Patient What is your living situation today?: I have a steady place to live Within the past 12 months, did the food you bought not last and you didn't have the money to get more?: Never true Within the past 12 months, did you worry whether your food would run out before you got money to buy more?: Never true Do you have trouble paying for medicines?: No Do you have trouble getting transportation to medical appointments?: No Do you have trouble paying your heating and electricity bill?: No Do you have trouble taking care of your child, family member or friend?: No Do you have trouble with day-to-day activities such as bathing, preparing meals, shopping, managing finances, etc.?: No Are you currently unemployed and looking for a job?: No Are you interested in more education?: No Please select the resources that you would like help with: None Currently or been in a relationship where the following occur: no concerns reported AUDIT C Alcohol Use Questionnaire (AUDIT-C) 1. How often do you have a drink containing alcohol?: Monthly or less 2. How many drinks containing alcohol do you have on a typical day when you are drinking?: 1 or 2 Total Score: 1 Score Reviewed/Action Taken: Yes CARI-7 AMB Questionnaire CARI-7 Date CARI - 7 assessed: 03/28/23 Feeling nervous, anxious, or on edge: 0 = Not at all Not being able to stop or control worryin = Not at all Worrying too much about different things: 0 = Not at all Trouble relaxin = Not at all Being so restless that it is hard to sit still: 0 = Not at all Becoming easily annoyed or irritable: 0 = Not at all Feeling afraid as if something awful might happen: 0 = Not at all Total CARI-7 score (0-4 normal; 5-9 mild; 10-14 moderate; 15-21 severe): 0 Source: Developed by Drs. Iban Moreland, Vimal Cevallos and colleagues, with an educational daniel from [employer] Review of Systems Const Denies chills, Denies fatigue, Denies fever(s) and Denies headache(s) ENT Denies dysphagia, Denies dizziness, Denies otalgia, Denies headache(s), Denies odynophagia, Denies sinus pain and Denies sore throat Card Denies chest pain, Denies palpitations and Denies dyspnea Resp Denies cough and Denies dyspnea GI Denies abdominal pain, Reports constipation (recently), Denies dysphagia, Denies heartburn, Denies diarrhea, Denies nausea, Denies odynophagia and Denies vomiting Denies dysuria, Denies nocturia and Denies urinary frequency Musc Denies back pain and Denies muscle weakness Skin/Breast Denies rash Neuro Denies dizziness and Denies headache(s) Endo Denies fatigue and Denies palpitations Physical exam (Primary Care) Vital Signs: Last Vital Signs Pulse 69 03/28/23 13:21 BP 122/70 03/28/23 13:21 Pulse Ox 99 03/28/23 13:21 Oxygen Delivery Method Room Air 03/28/23 13:21 BMI result Body Mass Index 24.3 Tobacco/Smoking Status: Tobacco use Status Tobacco use date assessed 03/28/23 03/28/23 13:24 Patient Tobacco Use Status Never used Tobacco 03/28/23 13:24 e-Cigarette/Vaping Use Never Used 03/28/23 13:24 PHQ-9: PHQ-9 Score PHQ-9: Total score 0 03/28/23 13:39 Depression Screening Interpretation: Negative Thrive Assessment: Date of Thrive Assessment Date Thrive assessed 03/28/23 03/28/23 13:24 Currently or been in a relationship where the following occur: no concerns reported Const General: no acute distress and alert HENMT Ears: TM's normal bilaterally and EAC's normal Throat: Yes posterior oropharynx normal and Yes tonsils normal (no TP congestion noted) Neck Neck: Yes no lymphadenopathy and Yes supple Resp Auscultation: clear to auscultation bilaterally, no rales and no wheezes Cardio Rate: regular rate Rhythm: regular rhythm Heart sounds: no murmurs GI Palpation (GI): Soft to palpation and nontender Auscultation: normal bowel sounds Skin Rashes: no rashes Extrem General: Yes no clubbing, cyanosis or edema Results Reviewed Results Reviewed: Laboratory Tests 03/13/23 07:30 WBC 7.2 Hgb 13.8 L Hct 42.1 Plt Count 164 Sodium 142 Potassium 4.0 Creatinine 0.96 Estimated GFR > 60 Fasting Glucose 95 Calcium 9.4 AST 21 ALT 22 Triglycerides 99 Cholesterol 141 LDL Cholesterol, Calc 74 HDL Cholesterol 48 25-OH Vitamin D Total 43.2 TSH 3.14 Ur Specific [place] 1.015 Urine Protein Negative Urine Glucose (UA) Negative Urine Blood Negative Assessment and Plan Assessment & Plan (1) Cryptogenic stroke: Code(s): I63.9 - Cerebral infarction, unspecified Plan: Brain MRI done at [facility] on 04/24/22 revealed (+) scattered right frontal aubacute cortical infarct without hemorrhagic transformation and chronic right pontine and right cerebellar lacunar infarcts and chronic medial left frontal lobe infarct Continue Aspirin 81 mg QD; S/P dual antiplatelet Tx with Clopidogrel x 3 weeks armature bander done previously was negative for AF or arrhythmias; echocardiogram showed normal EF, no intracardiac thrombus but left atrium was mildly dilated Was seen by [facility] Neurology for follow up a few months ago and was advised further evaluation of his CVA etiology with an implantable loop recorder Patient was referred to cardiology for this at his last visit - is now scheduled to have this done early next month (2) Benign essential hypertension: Code(s): I10 - Essential (primary) hypertension Plan: Reinforced low sodium diet - goal is systolic BP of at least 140 to 150 mm or less Continue Lisinopril 20 mg QD and Metoprolol ER 25 mg QD (3) Mixed hyperlipidemia: Code(s): E78.2 - Mixed hyperlipidemia Plan: Results of his labs done a couple of weeks ago reviewed and discussed with patient Reinforced low cholesterol diet Continue Atorvastatin 10 mg QD Will recheck his labs and fasting lipids in 6 months for follow up (4) Impaired fasting glucose: Code(s): R73.01 - Impaired fasting glucose Plan: HgbA1c was normal at 5.6% when checked last year and again a few months ago Reinforced low calorie diet/exercise as tolerated (5) GERD without esophagitis: Code(s): K21.9 - Gastro-esophageal reflux disease without esophagitis Plan: Dietary restrictions reinforced (6) Erectile dysfunction: Code(s): N52.9 - Male erectile dysfunction, unspecified Qualifiers: Erectile dysfunction type: unspecified Qualified Code(s): N52.9 - Male erectile dysfunction, unspecified Plan: Continue Sildenafil 100 mg QD PRN (7) Glaucoma of both eyes: Code(s): H40.9 - Unspecified glaucoma Qualifiers: Glaucoma type: unspecified Qualified Code(s): H40.9 - Unspecified glaucoma Plan: Continue Alphagan 0.15% 1 drop into each eye 3 times a day, Cosopt 1 drop into each eye twice a day and Lumigan 1 drop into each eye once a day at bedtime Follow up with Ophthalmology (Dr. Kwok) as scheduled Plan Follow up in 6 months Orders: Orders Complete Blood Count Auto Diff 6 Months I10 - Essential (primary) hypertension Lipid Panel 6 Months E78.00 - Pure hypercholesterolemia, unspecified TSH reflex Free T4 6 Months E78.00 - Pure hypercholesterolemia, unspecified UA CC w/rflx Micro + Cult 6 Months R30.0 - Dysuria Comprehensive [place]. Panel Fast 6 Months E78.00 - Pure hypercholesterolemia, unspecified Vitamin D 25-OH Total 6 Months E55.9 - Vitamin D deficiency, unspecified Coding Level of Care Code Est Pt Level 4 (90512) Diagnoses Cryptogenic stroke I63.9 Benign essential hypertension I10 Mixed hyperlipidemia E78.2 Impaired fasting glucose R73.01 GERD without esophagitis K21.9 Erectile dysfunction, unspecified erectile dysfunction type N52.9 Erectile dysfunction type: unspecified Glaucoma of both eyes, unspecified glaucoma type H40.9 Glaucoma type: unspecified
== END 2023-03-28 14:14 | disposition home or self-care (01) ==
PROVIDERS: Visit Provider Internal Medicine
DX: I10 Essential (primary) hypertension (principal); I25.2 Old myocardial infarction; E78.2 Mixed hyperlipidemia; R73.01 Impaired fasting glucose; K21.9 Gastro-esophageal reflux disease without esophagitis; N52.9 Male erectile dysfunction, unspecified; H40.9 Unspecified glaucoma
CPT/HCPCS: 99214

== ENCOUNTER 2023-09-07 07:04 | Outpatient (REF) | payer MEDICARE, SELFPAY ==
[2023-09-07 07:22] LABS: MANUAL DIFF FLAG NO
[2023-09-07 08:02] LABS: Basophils Percent Auto 0.1 % (0-2); Eosinophils Absolute Auto 0.3 X10*3/uL (0.0-0.4); Eosinophils Percent Auto 3.7 % (0-4); Hematocrit 43.6 % (42.0-52.0); Hemoglobin 14.3 g/dl (14.0-18.0); Imm Gran Abs Auto 0.02 X10*3/uL (0.00-0.03); Imm Gran Pct Auto 0.3 % (0.0-0.4); Lymphocytes Absolute Auto 3.3 X10*3/uL (1.2-4.9); Lymphocytes Percent Auto 43.6 % (20-40); Mean Corpuscular HGB Conc 32.8 g/dl (31.0-36.0); Mean Corpuscular Hemoglobin 30.7 pg (27.0-33.0); Mean Corpuscular Volume 93.6 fL (80.0-98.0); Mean Platelet Volume 10.8 fL (9.4-12.4); Monocytes Absolute Auto 0.6 X10*3/uL (0.1-1.2); Monocytes Percent Auto 8.4 % (2-11); Neutrophils Absolute Auto 3.3 x10*3/uL (2.0-8.3); Neutrophils Percent Auto 43.9 % (45-73); Platelet Count 180 X10*3/uL (160-400); Red Blood Count 4.66 X10*6/uL (4.60-5.80); Red Cell Distribution Width 12.2 % (11.0-16.0); White Blood Count 7.5 X10*3/uL (4.8-10.8)
[2023-09-07 08:42] LABS: Alanine Aminotransferase 28 U/L (0-40); Albumin Level 4.4 g/dL (3.5-5.0); Alkaline Phosphatase 66 U/L (39-117); Anion Gap 10 (12-20); Aspartate Amino Transferase 20 U/L (5-37); Bilirubin Total 1.1 mg/dL (0.0-1.0); Blood Urea Nitrogen 13 mg/dL (9-16); Calcium 9.1 mg/dL (8.4-10.2); Carbon Dioxide 29 mmol/L (22-29); Chloride 107 mmol/L (96-108); Cholesterol 153 mg/dL (<200); Estimated Glomerular Filt Rate > 60; Glucose Fasting 100 mg/dL (60-99); HDL Cholesterol 51 mg/dL (>40); LDL Cholesterol Calculated 81 mg/dL (<100); Sodium 142 mmol/L (135-145); Total Protein 7.3 g/dL (6.5-8.0); Triglycerides 106 mg/dL (<150)
[2023-09-07 08:56] LABS: Appearance Urine Clear; Color Urine Yellow; Glucose Urine UA Negative (Negative); Leukocyte Esterase Urine Trace (Negative); Nitrite Urine Negative (Negative); Specific Gravity - Urine 1.015 (1.005-1.025); UMIC TRIGGER UACC YES; Urine Blood Negative (Negative); Urine Ketones 15 mg/dL (Negative); Urine Protein Negative (Neg-Trace)
[2023-09-07 08:59] LABS: Bacteria Urine None Seen (None Seen); Hyaline Casts Urine 0-2 /LPF (0-2); RBC Urine 0-2 /HPF (0-2); Squamous Epithelial Cell Urine 0-2 /HPF (0-2); WBC Urine 0-5 /HPF (0-5)
[2023-09-07 08:59] LABS: TSH reflex Free T4 3.55 uIU/mL (0.32-4.0); Vitamin D 25-OH Total 38.9 ng/mL (>30)
== END 2023-09-07 07:05 | disposition home or self-care (01) ==
LOC: HO.LAB 07:04
PROVIDERS: PCP Internal Medicine; Visit Provider Internal Medicine
DX: E78.00 Pure hypercholesterolemia, unspecified (principal); E55.9 Vitamin D deficiency, unspecified; I10 Essential (primary) hypertension
CPT/HCPCS: 36415; 80053; 80061; 81001; 82306; 84443; 85025

== ENCOUNTER 2023-10-04 09:03 | Outpatient (AMB) | payer MEDICARE, SELFPAY ==
[2023-10-04 09:05] VITALS: BP 130/70; PULSE 65; O2SAT 99; BMI 24.7
--- NOTE | 2023-10-04 09:05 | A.OFFPC_ITS ---
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 Assembly Required: No Allergies vaccine adjuvant system, AS01B lipo [Shingrix (PF)] Adverse Reaction (Unknown, Verified 10/04/23 10:16) flu-like symptoms, bruising, fever varicella-zoster virus glycoprotein [Shingrix (PF)] Adverse Reaction (Unknown, Verified 10/04/23 10:16) flu-like symptoms, bruising, fever Medication List - Last Reconciled 10/04/23 by Ion Kwong MD apixaban (Eliquis) 5 mg PO BID atorvastatin 10 mg PO BEDTIME 90 days bimatoprost 0.01% (Lumigan) 1 drp ophthalmic (eye) QPM brimonidine 0.1% 1 drp ophthalmic (eye) Q8H dorzolamide-timolol 22.3-6.8 mg/mL 1 drp ophthalmic (eye) BID lisinopril 20 mg PO DAILY metoprolol succinate ER 75 mg PO DAILY netarsudil 0.02% (Rhopressa) 1 drp ophthalmic (eye) QPM sildenafil 100 mg PO DAILY PRN Tobacco use date assessed: 10/04/23 Fall risk assessment: No Falls in past year Last assessed Fall Risk: 10/04/23 Dental Screening Dental Screen Date: 03/28/23 HPI cryptogenic stroke, hyperlipidemia, HTN HPI Details Patient comes in today for his follow up visit States that he feels okay He denies any headaches or dizziness Denies any chest pains, no SOB No nausea/vomiting, no abdominal pain No change in bowel habits noted Recalls that he had a loop recorder at sometime last April 2023 and was adv ised that there were some positive findings on the recorder and his Metoprolol ER dosage was increased up to 75 mg QD Patient had his follow up labs done a few weeks ago - to discuss his results [facility] Medical History Cryptogenic stroke Glaucoma of both eyes Erectile dysfunction GERD without esophagitis Impaired fasting glucose Mixed hyperlipidemia Benign essential hypertension Surgical History Hx of colonoscopy (~05/02/14) H/O basal cell carcinoma excision Family History Father Colon cancer Mother No problems noted. Social History Housing: House Alcohol intake: current Alcohol intake frequency: holidays/special occasions only Patient Tobacco Use Status: Never used Tobacco e-Cigarette/Vaping Use: Never Used Second Hand Smoke Exposure: Yes service: Yes Current occupational status: retired Cognitive needs: No Hearing needs: No Vision needs: Yes Questionnaire PHQ-9 Over the last 2 weeks, how often have you been bothered by any of the following problems? 1. Little interest or pleasure in doing things: not at all 2. Feeling down, depressed, or hopeless: not at all 3. Trouble falling or staying asleep, or sleeping too much: not at all 4. Feeling tired or having little energy: not at all 5. Poor appetite or overeating: not at all 6. Feeling bad about yourself - or that you are a failure or have let yourself or your family down: not at all 7. Trouble concentrating on things, such as reading the newspaper or watching television: not at all 8. Moving or speaking so slowly that other people could have noticed. Or the opposite - being so fidgety or restless that you have been moving around a lot more than usual: not at all 9. Thoughts that you would be better off or of hurting yourself in some way: not at all Total score: 0 Depression Screening Interpretation: Negative Depression Screening Done: Yes 74825 - PHQ-9 Billing: Yes Source: Developed by Drs. Iban Moreland, Eleni Nicole, Vimal House and colleagues, with an educational daniel from [employer]. Thrive Questionnaire Date Thrive assessed: 10/04/23 I am a: Patient What is your living situation today?: I have a steady place to live Within the past 12 months, did the food you bought not last and you didn't have the money to get more?: Never true Within the past 12 months, did you worry whether your food would run out before you got money to buy more?: Never true Do you have trouble paying for medicines?: No Do you have trouble getting transportation to medical appointments?: No Do you have trouble paying your heating and electricity bill?: No Do you have trouble taking care of your child, family member or friend?: No Do you have trouble with day-to-day activities such as bathing, preparing meals, shopping, managing finances, etc.?: No Are you currently unemployed and looking for a job?: No Are you interested in more education?: No Please select the resources that you would like help with: None Currently or been in a relationship where the following occur: no concerns reported THRIVE Score: 0 AUDIT C Alcohol Use Questionnaire (AUDIT-C) 1. How often do you have a drink containing alcohol?: Monthly or less 2. How many drinks containing alcohol do you have on a typical day when you are drinking?: 1 or 2 Total Score: 1 Score Reviewed/Action Taken: Yes CARI-7 AMB Questionnaire CARI-7 Date CARI - 7 assessed: 03/28/23 Source: Developed by Drs. Iban Moreland, Eleni Nicole, Vimal House and colleagues, with an educational daniel from [employer]. Review of Systems Const Denies chills, Denies fatigue, Denies fever(s) and Denies headache(s) ENT Denies dysphagia, Denies dizziness, Denies otalgia, Denies headache(s), Denies neck pain, Denies odynophagia and Denies sore throat Card Denies chest pain, Denies palpitations and Denies dyspnea Resp Denies cough, Denies dyspnea and Denies wheezing GI Denies abdominal pain, Denies constipation, Denies dysphagia, Denies heartburn, Denies diarrhea, Denies nausea, Denies odynophagia and Denies vomiting Denies dysuria, Denies nocturia and Denies urinary frequency Musc Denies back pain, Denies muscle weakness and Denies neck pain Skin/Breast Denies rash Neuro Denies dizziness and Denies headache(s) Endo Denies fatigue and Denies palpitations Aller/Immun Denies wheezing Physical exam (Primary Care) Vital Signs: Last Vital Signs Pulse 65 10/04/23 09:05 BP 130/70 10/04/23 09:05 Pulse Ox 99 10/04/23 09:05 Oxygen Delivery Method Room Air 10/04/23 09:05 BMI result Body Mass Index 24.7 Tobacco/Smoking Status: Tobacco use Status Tobacco use date assessed 10/04/23 10/04/23 09:11 Patient Tobacco Use Status Never used Tobacco 10/04/23 09:11 e-Cigarette/Vaping Use Never Used 10/04/23 09:11 Depression Screening Interpretation: Negative Thrive Assessment: Date of Thrive Assessment Date Thrive assessed 03/28/23 10/04/23 09:11 Currently or been in a relationship where the following occur: no concerns r eported Const General: no acute distress and alert HENMT Ears: TM's normal bilaterally and EAC's normal Throat: Yes posterior oropharynx normal and Yes tonsils normal (no TP congestion noted) Neck Neck: Yes no lymphadenopathy and Yes supple Thyroid: Thyroid normal Resp Auscultation: clear to auscultation bilaterally, no rales and no wheezes Cardio Rate: regular rate Rhythm: abnormal rhythm with ectopic beats Heart sounds: no murmurs GI Palpation (GI): Soft to palpation and nontender Auscultation: normal bowel sounds General: Yes no CVA tenderness Back/Spine/Pelvis Back: no CVA tenderness Skin Rashes: no rashes Extrem General: Yes no clubbing, cyanosis or edema Results Reviewed Results Reviewed: Laboratory Tests 09/07/23 09/07/23 07:20 07:21 WBC 7.5 Hgb 14.3 Hct 43.6 Plt Count 180 Sodium 142 Potassium 4.0 Creatinine 0.99 Estimated GFR > 60 Fasting Glucose 100 H Calcium 9.1 AST 20 ALT 28 Triglycerides 106 Cholesterol 153 LDL Cholesterol, Calc 81 HDL Cholesterol 51 25-OH Vitamin D Total 38.9 TSH 3.55 Ur Specific [place] 1.015 Urine Protein Negative Urine Glucose (UA) Negative Urine Blood Negative Urine Nitrite Negative Ur Leukocyte Esterase Trace H Assessment and Plan Assessment & Plan (1) Cryptogenic stroke: Code(s): I63.9 - Cerebral infarction, unspecified Plan: Brain MRI done at [facility] on 04/24/22 revealed (+) scattered right frontal aubacute cortical infarct without hemorrhagic transformation and chronic right pontine and right cerebellar lacunar infarcts and chronic medial left frontal lobe infarct S/P dual antiplatelet Tx with Clopidogrel x 3 weeks, after which Clopidogrel was discontinued recreational specialist done previously was negative for AF or arrhythmias; echocardiogram showed normal EF, no intracardiac thrombus but left atrium was mildly dilated Was seen by [facility] Neurology for follow up and was advised further evaluation of his CVA etiology with an implantable loop recorder Patient recalls being seen by cardiology (Dr. Ian Joshua) sometime last April (2022) and had a loop recorder placed States that his Metoprolol ER was raised from 25 mg QD to 75 mg QD after he had his recorder done as he recalls being told that his recorder showed some abnormality but he could not remember the details of his conversation back then He is also currently on Eliquis 5 mg BID; his Aspirin 81 mg was discontinued subsequently I suspect that his loop recorder showed (+) PAF as patient's heart sounds today revealed (+) ectopic beats Will try to get cardiology to send over a copy of his report for review and documentation (2) Benign essential hypertension: Code(s): I10 - Essential (primary) hypertension Plan: Reinforced low sodium diet - goal is systolic BP of at least 140 to 150 mm or less Continue Lisinopril 20 mg QD and Metoprolol ER 75 mg QD (dose was raised by cardiology earlier this year) (3) Mixed hyperlipidemia: Code(s): E78.2 - Mixed hyperlipidemia Plan: Results of his labs done a few weeks ago reviewed and discussed with patient Reinforced low cholesterol diet Continue Atorvastatin 10 mg QD Will recheck his labs and fasting lipids in 6 months for follow up (4) Impaired fasting glucose: Code(s): R73.01 - Impaired fasting glucose Plan: HgbA1c was normal at 5.6% when previously checked Reinforced low calorie diet/exercise as tolerated (5) GERD without esophagitis: Code(s): K21.9 - Gastro-esophageal reflux disease without esophagitis Plan: Dietary restrictions reinforced (6) Erectile dysfunction: Code(s): N52.9 - Male erectile dysfunction, unspecified Qualifiers: Erectile dysfunction type: unspecified Qualified Code(s): N52.9 - Male erectile dysfunction, unspecified Plan: Continue Sildenafil 100 mg QD PRN (7) Glaucoma of both eyes: Code(s): H40.9 - Unspecified glaucoma Qualifiers: Glaucoma type: unspecified Qualified Code(s): H40.9 - Unspecified gl aucoma Plan: Continue Alphagan 0.15% 1 drop into each eye 3 times a day, Cosopt 1 drop into each eye twice a day, Lumigan 1 drop into each eye Q 8 hours and Rhopressa 0.02% 1 drop into each eye Q PM Follow up with Ophthalmology (Dr. Kwok) as scheduled Plan Follow up in 6 months Orders: Orders TSH reflex Free T4 6 Months E78.00 - Pure hypercholesterolemia, unspecified Vitamin D 25-OH Total 6 Months E55.9 - Vitamin D deficiency, unspecified Prostate Specific Antigen 6 Months N40.0 - Benign prostatic hyperplasia without lower urinary tract symptoms, R35.0 - Frequency of micturition Comprehensive [place]. Panel Fast 6 Months E78.00 - Pure hypercholesterolemia, unspecified Complete Blood Count Auto Diff 6 Months D64.9 - Anemia, unspecified Lipid Panel 6 Months E78.00 - Pure hypercholesterolemia, unspecified UA CC w/rflx Micro + Cult 6 Months R30.0 - Dysuria Hemoglobin A1c 6 Months R73.01 - Impaired fasting glucose Medications: Changed From metoprolol succinate ER 25 mg PO DAILY 90 tabs 3RF To metoprolol succinate ER 75 mg PO DAILY Coding Level of Care Code Est Pt Level 4 (38931) Diagnoses Cryptogenic stroke I63.9 Benign essential hypertension I10 Mixed hyperlipidemia E78.2 Impaired fasting glucose R73.01 GERD without esophagitis K21.9 Erectile dysfunction, unspecified erectile dysfunction type N52.9 Erectile dysfunction type: unspecified Glaucoma of both eyes, unspecified glaucoma type H40.9 Glaucoma type: unspecified
== END 2023-10-04 10:00 | disposition home or self-care (01) ==
PROVIDERS: PCP Internal Medicine; Visit Provider Internal Medicine
DX: I10 Essential (primary) hypertension (principal); Z86.73 Personal history of transient ischemic attack (TIA), and cerebral infarction without residual deficits; E78.2 Mixed hyperlipidemia; R73.01 Impaired fasting glucose; K21.9 Gastro-esophageal reflux disease without esophagitis; N52.9 Male erectile dysfunction, unspecified; H40.9 Unspecified glaucoma
CPT/HCPCS: 99214

== ENCOUNTER 2024-03-17 11:03 | Emergency (ER) | payer MEDICARE, SELFPAY ==
--- NOTE | ~2024-03-17 | XR_ITS ---
EXAMINATION: XR LUMBOSACRAL SPINE CLINICAL INFORMATION: Lumbar and thoracic spine. Chest x-ray with left RIBS. COMPARISON: None available. TECHNIQUE: 3 views lumbar spine. 3 views thoracic spine and chest with left RIBS 4 views. FINDINGS: Lumbar spine: There is maintained lumbar lordosis. The vertebral heights, alignment and disc heights are normal. No visible acute fracture, dislocation or subluxation. No aggressive lytic or sclerotic process seen Dorsal spine: There is normal thoracic kyphosis. The vertebral heights and alignment is normal. There is mild ventral and lateral spondylosis. No visible acute fracture, dislocation or lytic process seen. CHEST WITH LEFT RIBS: The lungs are well-expanded and clear acute process. The heart size and pulmonary vascularity is normal. Multiple views of left ribs reveal no visible fracture lytic or sclerotic process. The soft tissues are normal. XR/XR lumbar spine 2-3V IMPRESSION: 1. Unremarkable lumbar spine exam. 2. Unremarkable dorsal spine exam. 3. Unremarkable chest exam. 4. Unremarkable left rib exam. Electronically signed by: Mariusz Sterling MD 03/17/2024 11:47 AM [facility]
--- NOTE | ~2024-03-17 | XR_ITS ---
EXAMINATION: XR THORACIC SPINE CLINICAL INFORMATION: Status post fall. Pain COMPARISON: None available. TECHNIQUE: 3 views of the thoracic spine were obtained. FINDINGS: There is no fracture or bone destruction seen and the vertebral alignment is normal. There is no disc space narrowing. There is moderate ventral and lateral spondylosis. There is no abnormality of the paraspinal soft tissues. XR/XR thoracic spine 3V IMPRESSION: Unremarkable dorsal spine examination. Moderate spondylosis. Electronically signed by: Mariusz Sterling MD 03/17/2024 11:49 AM [facility]
--- NOTE | ~2024-03-17 | XR_ITS ---
EXAMINATION: XR RIBS, LEFT CLINICAL INFORMATION: Left RIBS and chest. COMPARISON: None available. TECHNIQUE: 3 views of the left ribs were obtained. FINDINGS: Lungs are clear. No consolidation, pneumothorax, or pleural effusion. The cardiomediastinal silhouette and pulmonary vasculature are normal. There is a loop recorder in the left anterior chest wall. Osseous structures are unremarkable. Ribs are intact. No fractures are identified. XR/XR ribs LT min 3V w CXR1V IMPRESSION: Unremarkable chest and left rib exam with no visible left rib fracture Electronically signed by: Mariusz Sterling MD 03/17/2024 11:48 AM [facility]
--- NOTE | ~2024-03-17 | CT_ITS ---
EXAMINATION: CT CHEST WITHOUT CONTRAST CT ABDOMEN AND PELVIS WITHOUT CONTRAST CLINICAL INFORMATION: Left sided posterior rib pain sp fall COMPARISON: None. TECHNIQUE: Multidetector volumetric imaging was performed through the chest, abdomen and pelvis without the administration of contrast. Sagittal and coronal reformatted images were obtained on the technologist's workstation. Axial MIP volume rendering provided. This CT examination was performed using dose optimization techniques as appropriate, variously including the following: *Automated exposure control *Adjustment of mA and/or kV according to patient size (this includes techniques or standardized protocols for targeted exams where dose is matched to indication/reason for exam; i.e. extremities or head) *Use of iterative reconstruction technique DLP: 647 mGy-cm. FINDINGS: CHEST: Lungs: The central airways are patent. No consolidation. No pleural effusion or pneumothorax. There are no pulmonary parenchymal nodules. Mediastinum: The heart is of normal size. There is no pericardial effusion. Central vascular structures are unremarkable. No hilar or mediastinal lymphadenopathy. Coronary Artery Calcification: Moderate moderate coronary artery calcifications present Chest Wall/Axilla: No lymphadenopathy. No chest wall mass. ABDOMEN/PELVIS: Liver, Gallbladder, Biliary Tree: The liver is normal in size, shape, and attenuation. No focal hepatic lesion or biliary ductal dilatation is present. The gallbladder is unremarkable with no evidence of radiopaque gallstones, gallbladder wall thickening, or pericholecystic inflammatory changes. Pancreas: Unremarkable. Spleen: Unremarkable. Adrenal Glands: Unremarkable. Kidneys and Ureters: Left kidney revealed small exophytic cortical cyst, measured 1.6 x 1.8 cm and punctate calcification adjacent to this cyst but no hydronephrosis or nephrolithiasis. No perinephric stranding seen on the right. There is minimal perinephric stranding in the lower pole of left kidney, nonspecific Bladder: Partially distended urinary bladder revealed indentation from an enlarged prostate less likely Mass. Correlate with pelvic ultrasound or cystoscopy. Gastrointestinal Tract: Stomach and loops of small bowel are unremarkable. There is no evidence of colitis, diverticulitis, bowel obstruction. No evidence of diverticulosis. Appendix is unremarkable. Mesentery is normal. Abdominal Wall: No hernia is demonstrated. Lymphovascular Structures: Lymph nodes: Normal. Vascular: Unremarkable. Pelvic Viscera: Prostate is heterogeneous, lobulated, enlarged calcifications seen in seminal vesicles. OSSEOUS STRUCTURES: No suspicious sclerotic or lytic bone lesions are identified. CT/CT abdomen pelvis wo IV con IMPRESSION: 1. No evidence of rib fractures. 2. Enlarged prostate gland indenting the urinary bladder, correlate with pelvic ultrasound or cystoscopy. 3. Small exophytic cyst in the left kidney and punctate calcification adjacent to this cyst. 4. Coronary artery calcifications. Electronically signed by: Chacorta Francois MD 03/17/2024 04:45 PM EST
[2024-03-17 11:07] VITALS: BP 145/67; PULSE 62; RESP 16; TEMP 37; O2SAT 100; BMI 24.6
--- NOTE | 2024-03-17 11:09 | ED.GENADULT ---
HPI - General Adult General Chief complaint: Fall Stated complaint: Back pain, Injury Time Seen by Provider: 03/17/24 15:03 Source: patient Mode of arrival: ambulatory Limitations: no limitations History of Present Illness ED Provider: Virginia WONG HPI narrative: This is a 70-year-old male history of TIA, cryptogenic stroke, AFib on Eliquis, GERD, hyperlipidemia, hypertension presenting to the emergency department with posterior left-sided rib pain status post fall on Monday, patient reports he was leaning over while picking something up, he stood up quickly got dizzy, fell and landed on his left posterior back, he hit his back against a stair. He thinks this happened quickly and he may have lost consciousness however unclear. who was there states he did not. Denies headache, chest pain, preceding symptoms to fall, nausea, vomiting, abdominal pain, shortness of breath, fevers, chills. Related Data Home Medications ?Medication ?Instructions ?Recorded ?Confirmed brimonidine 0.1 % eye drops 1 drp ophthalmic (eye) Q8H 09/20/21 10/04/23 dorzolamide 22.3 mg-timolol 6.8 1 drp ophthalmic (eye) BID 09/20/21 10/04/23 mg/mL eye drops bimatoprost 0.01 % eye drops 1 drp ophthalmic (eye) QPM 09/20/22 10/04/23 (Lumigan) netarsudil 0.02 % eye drops 1 drp ophthalmic (eye) QPM 03/28/23 10/04/23 (Rhopressa) apixaban 5 mg tablet (Eliquis) 5 mg PO BID 10/04/23 10/04/23 metoprolol succinate 25 mg 75 mg PO DAILY 10/04/23 10/04/23 tablet,extended release 24 hr Previous Rx's ?Medication ?Instructions ?Recorded sildenafil 100 mg tablet 100 mg PO DAILY PRN sexual 09/20/22 activity #10 tabs atorvastatin 10 mg tablet 10 mg PO BEDTIME 90 days #90 tabs 10/31/23 lisinopril 20 mg tablet 20 mg PO DAILY #90 tabs 10/31/23 acetaminophen 325 mg capsule 650 mg (2 x 325 mg) PO Q4H PRN 03/17/24 (Tylenol) pain #30 caps lidocaine 5 % topical patch 1 patch topical DAILY PRN pain #15 03/17/24 ea Allergies Allergy/AdvReac Type Severity Reaction Status Date / Time vaccine adjuvant system, AdvReac Unknown flu-like Verified 03/17/24 11:11 [id number] lipo symptoms, [Shingrix (PF)] bruising, fever varicella-zoster virus AdvReac Unknown flu-like Verified 03/17/24 11:11 glycoprotein symptoms, [Shingrix (PF)] bruising, fever Review of Systems Review of Systems: Yes all other systems are reviewed and are negative [facility] Past Medical History Attestation statement: The following information was validated with the patient. Source: old records reviewed and nursing notes reviewed Medical History (Updated 03/17/24 @ 15:21 by ROBERTO Leslie) Paroxysmal atrial fibrillation Cryptogenic stroke Glaucoma of both eyes Erectile dysfunction GERD without esophagitis Impaired fasting glucose Mixed hyperlipidemia Benign essential hypertension Surgical History Hx of colonoscopy (~05/02/14) H/O basal cell carcinoma excision Family History Family History Father Colon cancer Mother No problems noted. Social History Social History Housing: House Alcohol intake: current Alcohol intake frequency: holidays/special occasions only Alcohol type: wine Patient Tobacco Use Status: Never used Tobacco Smoked in Last 30 Days: No e-Cigarette/Vaping Use: Never Used Second Hand Smoke Exposure: Yes Use of substances other than those prescribed or required for medical reasons: No Advance Directives: No Advance Directives Information Provided: Yes Do you have a plan to hurt others: No Plan service: Yes Current occupational status: retired Cognitive needs: No Hearing needs: No Vision needs: Yes Physical Exam ED Vital Signs: Vital Signs - 24 hr 03/17/24 11:07 03/17/24 14:30 03/17/24 15:41 Temperature 98.6 F 97.9 F Pulse Rate 62 56 58 Respiratory Rate 16 18 Blood Pressure 145/67 H 122/78 152/73 H Pulse Oximetry 100 100 Oxygen Delivery Method Room Air Room Air 03/17/24 15:44 03/17/24 15:46 Temperature Pulse Rate 54 55 Respiratory Rate Blood Pressure 151/73 H 148/75 H Pulse Oximetry Oxygen Delivery Method BMI result Body Mass Index 24.6 vss Appearance: Alert.? Oriented X3.? No acute distress.? Head: Normocephalic, atraumatic, no step-offs or deformities Eyes: Pupils equal, round and reactive to light. CVS: Normal heart rate and rhythm.? Pulses normal.? Respiratory: No respiratory distress.? Breath sounds normal.? Abdomen: Soft and nontender.? Skin: Skin warm and dry.? Normal skin color.? Normal skin turgor.? Extremities: No lower extremity edema.? No calf ttp. 5/5 strength to bilateral upper and lower extremities Back: No midline tenderness, + tenderness to palpation around T8-T10 paraspinous muscles on the left. Very small healing bruise. No C-spine tenderness, full range of motion, no CVA tenderness bilaterally Neuro: Oriented X 3.? No motor deficit.? No sensory deficit. CN 2-12 intact Course Course Course Narrative: This is an RME: Additional HPI, ROS, PE not included below will be deferred to primary provider. RME assessment and note performed by: Dania Ferguson PA-C This is a [id number]-ulf-male, with a hx of [facility]oxysmal [facility], TIA, HLD, who presents to the ER with complaints of left sided rib pain s/p fall which occurred on monday (4 days ago). Pt states that he was bending over for a while picking leaves out of a crack and stood up, felt lightheaded and dizzy, and fell down several deck steps. Warts that it happened so quickly, he is unsure if you blacked out for any small point of time. He states that he has not had any headaches, blurred vision, dizziness, lightheadedness, chest pain, shortness of breath, abdominal pain, nausea, vomiting or diarrhea. No blood in the urine. He has tenderness palpation along the left ribs, and T-spine region. Discussed with and patient that given he is on blood thinners he has at an increased risk for intracranial bleeds. And given dizziness, was anticipating to do blood work and EKG however patient and would like to just have x-rays performed and would be re-evaluated by the provider in the main emergency department to see if this is deemed necessary. Plan: X-ray left ribs, x-ray T-spine and L-spine. Reevaluation(s) Reevaluation #1: X-ray of lumbar spine, thoracic spine and ribs unremarkable. No rib fractures noted. CT chest ordered and CT head ordered. Pending. Patient will be medicated with Tylenol and Lidoderm patch. Orthostatic vital signs and imaging pending. Time: 15:35 Reevaluation #2: Patient refusing head scan he says he did not hit his head. He also wants imaging of his lower back so abdomen CT ordered. His back pain is in lower thoracic so a chest CT should catch that this is why a chest CT was ordered. Patient and would like to leave after imaging is done. I explained to them this would be against medical advice as results are not back. They can follow-up on patient portal and follow-up with PCP. Educated patient on diagnosis and treatment plan, answered all question, patient verbalizes understanding. At this time patient will be discharged home, advised to return with new or worsening symptoms. Educated on worrisome signs and symptoms and when to return. Time: 15:56 Medications Administered Discontinued Medications Generic Name Dose Route Start Last Admin Trade Name Kennethq PRN Reason Stop Dose Admin Acetaminophen 650 mg 03/17/24 15:17 03/17/24 15:23 Acetaminophen 325 Mg Tablet PO 03/17/24 15:18 650 mg ONCE ONE Administration Lidocaine 1 patch 03/17/24 15:17 03/17/24 15:23 Lidocaine 4 % Patch Adh..Patch TRANSDERMA 03/17/24 15:18 1 patch ONCE ONE Administration Protocol Medical Decision Making Medical Decision Making [facility] Narrative: 70-year-old male presents status post fall with rib pain posteriorly since Monday. On Eliquis. Physical exam + tenderness to palpation around T8-T10 paraspinous muscles on the left. Very small healing bruise. History and physical exam concerning for contusion versus costochondritis versus rib fractures. Unlikely flail chest, pneumothorax, unlikely acute traumatic injury to abdomen, head, neck. No signs of intracranial hemorrhage, stroke, posterior stroke. Patient likely fell due to orthostasis. Will rule out orthostatic hypotension at this time. I do not suspect ACS, PE, dissection Plan Tylenol, Lidoderm patch. X-rays were ordered from triage all of which were normal. Will order CT scan for verification. Differential Diagnosis Differential Diagnoses: The differential diagnosis associated with the presentation includes (History and physical exam concerning for contusion versus costochondritis versus rib fractures. Unlikely flail chest, pneumothorax, unlikely acute traumatic injury to abdomen, head, neck. No signs of intracranial hemorrhage, stroke, posterior stroke.) Admission/Observation Consideration of admission/observation: Escalation of care including admission/observation considered (possible ) Independent Interpretation I performed an independent interpretation of an: Plain X-Ray ( XR/XR lumbar spine 2-3V IMPRESSION: 1. Unremarkable lumbar spine exam. 2. Unremarkable dorsal spine exam. 3. Unremarkable chest exam. 4. Unremarkable left rib exam.) Radiology Impression Discussion of test interpretation with radiology: I have reviewed the radiologist's reading. External Record Review External record reviewed: Outpatient record Prescription Management I considered prescription management with: Pain Medication and Other (lidocaine patch ) Chronic Conditions Patient?s care impacted by: Other (see hpi ) Discharge Plan Discharge Clinical Impression: Fall, Rib pain on left side, Acute costochondritis, Contusion Patient Disposition: Left Against Medical Advice Instructions: Costochondritis (ED), Fall Prevention (ED) Additional Instructions: Take your medications as prescribed. If you were prescribed antibiotics today, it is important that you take your medication to their entirety, do not skip any doses, do not finish them early. Follow-up with your primary care provider this week. Return to the emergency department with new or worsening symptoms. Such as fevers, chills, chest pain, shortness of breath, nausea, vomiting, dizziness, headache, vision changes, lethargy In case of emergency call 911 Patient decided to leave against medical advice, imaging results did not come back and patient is on blood thinners. Also refusing head scan.. I took the time to go over risks of leaving against medical advice including , internal bleeding. Patient verbalizes understanding of this. Advised them to come back if they change their mind. XR/XR lumbar spine 2-3V IMPRESSION: 1. Unremarkable lumbar spine exam. 2. Unremarkable dorsal spine exam. 3. Unremarkable chest exam. 4. Unremarkable left rib exam. XR/XR ribs LT min 3V w CXR1V IMPRESSION: Unremarkable chest and left rib exam with no visible left rib fracture Prescriptions: New lidocaine 5 % adhesive patch,medicated 1 patch topical DAILY PRN (Reason: pain) Qty: 15 0RF Rx Instructions: leave on most painful area for up to 12 hrs acetaminophen [Tylenol] 325 mg capsule 650 mg PO Q4H PRN (Reason: pain) Qty: 30 0RF No Action atorvastatin 10 mg tablet 10 mg PO BEDTIME 90 Days Qty: 90 1RF lisinopril 20 mg tablet 20 mg PO DAILY Qty: 90 3RF dorzolamide-timolol 22.3-6.8 mg/mL drops 1 drp ophthalmic (eye) BID brimonidine 0.1 % drops 1 drp ophthalmic (eye) Q8H Rhopressa 0.02 % drops 1 drp ophthalmic (eye) QPM metoprolol succinate 25 mg tablet extended release 24 hr 75 mg PO DAILY Eliquis 5 mg tablet 5 mg PO BID Lumigan 0.01 % drops 1 drp ophthalmic (eye) QPM sildenafil 100 mg tablet 100 mg PO DAILY PRN (Reason: sexual activity) Qty: 10 0RF Rx Instructions: administer 30 minutes to 4 hours before activity Referrals: [facility] [Provider Group] - 2 weeks Ion Kwong MD [Primary Care Provider] - 2 days Stand Alone Forms: Against Medical Advice Print Language: Kuwaiti
--- NOTE | 2024-03-17 12:22 | PC.NURSE ---
pt reports to dept from home s/p fall on Monday- pt reports he was outside, crouched down, upon standing pt felt lightheaded and fell down 2 stairs, striking his left chest. Fall was witnessed by family. No LOC, no prolonged downtime- pt was fully ambulatory after the fall. Pt complains of 4/10 pain at rest, pt reports 9/10 pian with movement.Pt chest rises and falls symmetrically, denies SOB, cough, N/V/D. Pt is on eliquis for Afib.Pt rec Imaging on arrival. Pt at bedside- awaiting provider heydi
[2024-03-17 14:30] VITALS: BP 122/78; PULSE 56; RESP 18; TEMP 36.6; O2SAT 100
[2024-03-17] MEDS: Acetaminophen 325 MG TABLET 650 MG PO (15:23)
[2024-03-17] MEDS: Lidocaine 4 % Patch ADH..PATCH 1 PATCH TRANSDERMA (15:23)
[2024-03-17 15:41] VITALS: BP 152/73; PULSE 58
[2024-03-17 15:44] VITALS: BP 151/73; PULSE 54
[2024-03-17 15:46] VITALS: BP 148/75; PULSE 55
[2024-03-17 16:12] VITALS: BP 148/75; PULSE 55; RESP 18; TEMP 36.9; O2SAT 98
== END 2024-03-17 16:12 | disposition left against medical advice (07) ==
PROVIDERS: Emergency Provider Emergency Medicine Emergency Medical Services; PCP Internal Medicine
DX: S20.212A Contusion of left front wall of thorax, initial encounter (principal); M94.0 Chondrocostal junction syndrome [Tietze]; R07.89 Other chest pain; I48.91 Unspecified atrial fibrillation; R10.2 Pelvic and perineal pain; M54.6 Pain in thoracic spine; M54.50 Low back pain, unspecified; W01.0XXA Fall on same level from slipping, tripping and stumbling without subsequent striking against object, initial encounter; Y93.89 Activity, other specified; Y92.89 Other specified places as the place of occurrence of the external cause; Y99.8 Other external cause status; Z79.01 Long term (current) use of anticoagulants; Z79.899 Other long term (current) drug therapy
CPT/HCPCS: 71101; 71250; 72072; 72100; 74176; 99284

== ENCOUNTER 2024-03-27 06:54 | Outpatient (REF) | payer MEDICARE, SELFPAY ==
[2024-03-27 07:26] LABS: MANUAL DIFF FLAG NO
[2024-03-27 07:54] LABS: Basophils Percent Auto 0.3 % (0-2); Eosinophils Absolute Auto 0.2 X10*3/uL (0.0-0.4); Eosinophils Percent Auto 2.2 % (0-4); Hematocrit 41.7 % (42.0-52.0); Hemoglobin 14.1 g/dl (14.0-18.0); Imm Gran Abs Auto 0.01 X10*3/uL (0.00-0.03); Imm Gran Pct Auto 0.1 % (0.0-0.4); Lymphocytes Absolute Auto 3.3 X10*3/uL (1.2-4.9); Lymphocytes Percent Auto 44.7 % (20-40); Mean Corpuscular HGB Conc 33.8 g/dl (31.0-36.0); Mean Corpuscular Hemoglobin 30.9 pg (27.0-33.0); Mean Corpuscular Volume 91.2 fL (80.0-98.0); Mean Platelet Volume 10.3 fL (9.4-12.4); Monocytes Absolute Auto 0.6 X10*3/uL (0.1-1.2); Monocytes Percent Auto 8.6 % (2-11); Neutrophils Absolute Auto 3.2 x10*3/uL (2.0-8.3); Neutrophils Percent Auto 44.1 % (45-73); Platelet Count 191 X10*3/uL (160-400); Red Blood Count 4.57 X10*6/uL (4.60-5.80); Red Cell Distribution Width 12.3 % (11.0-16.0); White Blood Count 7.3 X10*3/uL (4.8-10.8)
[2024-03-27 07:55] LABS: Appearance Urine Clear; Color Urine Yellow; Glucose Urine UA Negative (Negative); Leukocyte Esterase Urine Trace (Negative); Nitrite Urine Negative (Negative); UMIC TRIGGER UACC YES; Urine Blood Negative (Negative); Urine Ketones Trace mg/dL (Negative); Urine Protein Negative (Neg-Trace)
[2024-03-27 08:01] LABS: Bacteria Urine None Seen (None Seen); Hyaline Casts Urine 0-2 /LPF (0-2); RBC Urine 0-2 /HPF (0-2); Squamous Epithelial Cell Urine 0-2 /HPF (0-2); WBC Urine 0-5 /HPF (0-5)
[2024-03-27 08:09] LABS: Estimated Average Glucose 114 mg/dL; Hemoglobin A1C 139.4175 umol/L; Hemoglobin A1c % 5.6 % (<6.0); Total Hemoglobin (HGBA1C) 3690.8844 umol/L
[2024-03-27 08:27] LABS: Alanine Aminotransferase 34 U/L (0-40); Albumin Level 4.4 g/dL (3.5-5.0); Alkaline Phosphatase 84 U/L (39-117); Anion Gap 14 (12-20); Aspartate Amino Transferase 28 U/L (5-37); Bilirubin Total 1.1 mg/dL (0.0-1.0); Blood Urea Nitrogen 11 mg/dL (9-16); Calcium 9.6 mg/dL (8.4-10.2); Carbon Dioxide 27 mmol/L (22-29); Chloride 104 mmol/L (96-108); Cholesterol 146 mg/dL (<200); Estimated Glomerular Filt Rate > 60; Glucose Fasting 105 mg/dL (60-99); HDL Cholesterol 52 mg/dL (>40); LDL Cholesterol Calculated 75 mg/dL (<100); Potassium 4.2 mmol/L (3.3-5.1); Sodium 141 mmol/L (135-145); Total Protein 7.1 g/dL (6.5-8.0); Triglycerides 97 mg/dL (<150)
[2024-03-27 08:42] LABS: Prostate Specific Antigen 1.49 ng/mL (<0.05-4.0); TSH reflex Free T4 2.62 uIU/mL (0.32-4.0); Vitamin D 25-OH Total 40.2 ng/mL (>30)
== END 2024-03-27 06:55 | disposition home or self-care (01) ==
LOC: HO.LAB 06:54
PROVIDERS: PCP Internal Medicine; Visit Provider Internal Medicine
DX: D64.9 Anemia, unspecified (principal); E78.00 Pure hypercholesterolemia, unspecified; E55.9 Vitamin D deficiency, unspecified; N40.0 Benign prostatic hyperplasia without lower urinary tract symptoms; R35.0 Frequency of micturition; R73.01 Impaired fasting glucose; Z12.5 Encounter for screening for malignant neoplasm of prostate
CPT/HCPCS: 36415; 80053; 80061; 81001; 82306; 83036; 84153; 84443; 85025

== ENCOUNTER 2024-04-22 09:39 | Outpatient (AMB) | payer MEDICARE, SELFPAY ==
--- NOTE | 2024-04-22 09:51 | MHC.PC.OV ---
Vital Signs 04/22/24 09:52 Height 5 ft 7 in Weight 158 lb 2 oz BMI 24.8 BP 122/80 Blood Pressure Location Lt brachial Position Sitting Pulse 71 Pulse Source Pulse Oximeter Oxygen Delivery Method Room Air Intake Visit Reasons: HTN, HLD, IFG, Crytogenic Stroke Title Searcher Required: No Accompanied by: Self / Same As Patient Allergies vaccine adjuvant system, AS01B lipo [Shingrix (PF)] Adverse Reaction (Unknown, Verified 04/22/24 10:09) flu-like symptoms, bruising, fever varicella-zoster virus glycoprotein [Shingrix (PF)] Adverse Reaction (Unknown, Verified 04/22/24 10:09) flu-like symptoms, bruising, fever Medication List - Last Reconciled 04/22/24 by Ion Kwong MD acetaminophen (Tylenol) 650 mg (2 x 325 mg) PO Q4H PRN apixaban (Eliquis) 5 mg PO BID atorvastatin 10 mg PO BEDTIME 90 days bimatoprost 0.01% (Lumigan) 1 drp ophthalmic (eye) QPM brimonidine 0.1% 1 drp ophthalmic (eye) Q8H dorzolamide-timolol 22.3-6.8 mg/mL 1 drp ophthalmic (eye) BID lidocaine 5% 1 patch topical DAILY PRN lisinopril 20 mg PO DAILY metoprolol succinate ER 75 mg PO DAILY netarsudil 0.02% (Rhopressa) 1 drp ophthalmic (eye) QPM sildenafil 100 mg PO DAILY PRN Tobacco use date assessed: 04/22/24 Fall risk assessment: 1 Fall in past year Last assessed Fall Risk: 04/22/24 Dental Screening Dental Screen Date: 04/22/24 Did you have a dental visit in the last 12 months?: Yes Did you have a dental problem in the last 6 months where you did not have access to dental care?: No Was dental information given to patient?: Patient has dentist HPI HTN, HLD, IFG, Crytogenic Stroke HPI Details Patient comes in today for his follow up visit States that he feels okay Relates that he tested positive for COVID about 3 weeks ago when he was down in [place] States that his symptoms were mostly mild (just like usual cough/cold symptoms) and he denies any SOB when he was sick States that he just took some OTC meds for symptomatic relief and his symptoms have all cleared up gradually and he currently feels well He also went to the ER last month after he bent over, got dizzy and fell and apparently sustained an injury to his left side, including his left thoracic area He had x-rays done which did not show any acute injuries to his ribs and spine He reportedly refused to have a head CT done as he supposedly did not hit his head and decided to leave [place] immediately after his x-rays were done States that his left thoracic injury has since healed up and currently no longer bothers him He denies any headaches or dizziness Denies any chest pains, no SOB No nausea/vomiting, no abdominal pain No change in bowel habits noted He had his follow up labs done last month - to discuss his results He already had his flu shot but would like to get his tetanus booster today as it has been well over 10 years now since he last had a tetanus booster [facility] Medical History Paroxysmal atrial fibrillation Cryptogenic stroke Glaucoma of both eyes Erectile dysfunction GERD without esophagitis Impaired fasting glucose Mixed hyperlipidemia Benign essential hypertension Surgical History Hx of colonoscopy (~05/02/14) H/O basal cell carcinoma excision Family History Father Colon cancer Mother No problems noted. Social History Housing: House Alcohol intake: current Alcohol intake frequency: holidays/special occasions only Alcohol type: wine Patient Tobacco Use Status: Never used Tobacco e-Cigarette/Vaping Use: Never Used Second Hand Smoke Exposure: Yes service: Yes Current occupational status: retired Cognitive needs: No Hearing needs: No Vision needs: Yes Questionnaire PHQ-9 Over the last 2 weeks, how often have you been bothered by any of the following problems? 1. Little interest or pleasure in doing things: not at all 2. Feeling down, depressed, or hopeless: not at all 3. Trouble falling or staying asleep, or sleeping too much: not at all 4. Feeling tired or having little energy: not at all 5. Poor appetite or overeating: not at all 6. Feeling bad about yourself - or that you are a failure or have let yourself or your family down: not at all 7. Trouble concentrating on things, such as reading the newspaper or watching television: not at all 8. Moving or speaking so slowly that other people could have noticed. Or the opposite - being so fidgety or restless that you have been moving around a lot more than usual: not at all 9. Thoughts that you would be better off or of hurting yourself in some way: not at all Total score: 0 Depression Screening Interpretation: Negative Depression Screening Done: Yes 36248 - PHQ-9 Billing: Yes Source: Developed by Drs. Iban Moreland, Eleni Nicole, Vimal House and colleagues, with an educational daniel from [employer]. Thrive Questionnaire Date Thrive assessed: 04/22/24 I am a: Patient What is your living situation today?: I have a steady place to live Within the past 12 months, did the food you bought not last and you didn't have the money to get more?: Never true Within the past 12 months, did you worry whether your food would run out before you got money to buy more?: Never true Do you have trouble paying for medicines?: No Do you have trouble getting transportation to medical appointments?: No Do you have trouble paying your heating and electricity bill?: No Do you have trouble taking care of your child, family member or friend?: No Do you have trouble with day-to-day activities such as bathing, preparing meals, shopping, managing finances, etc.?: No Are you currently unemployed and looking for a job?: No Are you interested in more education?: No Please select the resources that you would like help with: None Currently or been in a relationship where the following occur: No concerns reported THRIVE Score: 0 AUDIT C Alcohol Use Questionnaire (AUDIT-C) 2. How many drinks containing alcohol do you have on a typical day when you are drinking?: 1 or 2 3. How often do you have six or more drinks on one occasion?: Never Total Score: 0 Score Reviewed/Action Taken: Yes CRAI-7 AMB Questionnaire CARI-7 Date CARI - 7 assessed: 04/22/24 Feeling nervous, anxious, or on edge: 0 = Not at all Not being able to stop or control worryin = Not at all Worrying too much about different things: 0 = Not at all Trouble relaxin = Not at all Being so restless that it is hard to sit still: 0 = Not at all Becoming easily annoyed or irritable: 0 = Not at all Feeling afraid as if something awful might happen: 0 = Not at all Total CARI-7 score (0-4 normal; 5-9 mild; 10-14 moderate; 15-21 severe): 0 Source: Developed by Drs. Iban Moreland, Eleni Nicole, Vimal House and colleagues, with an educational daniel from [employer]. Review of Systems Const Denies chills, Denies fatigue, Denies fever(s) and Denies headache(s) ENT Denies dysphagia, Denies dizziness, Denies otalgia, Denies headache(s), Denies neck pain, Denies odynophagia and Denies sore throat Card Denies chest pain, Denies palpitations and Denies dyspnea Resp Denies chest congestion, Denies cough and Denies dyspnea GI Denies abdominal pain, Denies constipation, Denies dysphagia, Denies heartburn, Denies diarrhea, Denies nausea, Denies odynophagia and Denies vomiting Denies dysuria, Denies nocturia and Denies urinary frequency Musc Denies back pain, Denies muscle weakness and Denies neck pain Skin/Breast Denies rash Neuro Denies dizziness and Denies headache(s) Endo Denies fatigue and Denies palpitations Physical exam (Primary Care) Vital Signs: Last Vital Signs Pulse 71 04/22/24 09:52 BP 122/80 04/22/24 09:52 Oxygen Delivery Method Room Air 04/22/24 09:52 BMI result Body Mass Index 24.8 Tobacco/Smoking Status: Tobacco use Status Tobacco use date assessed 04/22/24 04/22/24 09:58 Patient Tobacco Use Status Never used Tobacco 04/22/24 09:58 e-Cigarette/Vaping Use Never Used 04/22/24 09:58 PHQ-9: PHQ-9 Score PHQ-9: Total score 0 04/22/24 09:58 Depression Screening Interpretation: Negative Thrive Assessment: Date of Thrive Assessment Date Thrive assessed 04/22/24 04/22/24 09:58 Currently or been in a relationship where the following occur: No concerns reported Const General: no acute distress and alert HENMT Ears: TM's normal bilaterally and EAC's normal Throat: Yes posterior oropharynx normal and Yes tonsils normal (no TP congestion noted) Neck Neck: Yes no lymphadenopathy and Yes supple Thyroid: Thyroid normal Resp Auscultation: clear to auscultation bilaterally, no rales and no wheezes Cardio Rate: regular rate Rhythm: abnormal rhythm with ectopic beats Heart sounds: no murmurs GI Palpation (GI): Soft to palpation and nontender Auscultation: normal bowel sounds General: Yes no CVA tenderness Back/Spine/Pelvis Back: no CVA tenderness Thoracic/Lumbar Spine: No lumbar spinal tenderness Skin Rashes: no rashes Extrem General: Yes no clubbing, cyanosis or edema Results Reviewed Results Reviewed: Laboratory Tests 03/27/24 03/27/24 07:19 07:25 WBC 7.3 Hgb 14.1 Hct 41.7 L Plt Count 191 Sodium 141 Potassium 4.2 Creatinine 0.94 Estimated GFR > 60 Fasting Glucose 105 H Hemoglobin A1c % 5.6 Calcium 9.6 AST 28 ALT 34 Triglycerides 97 Cholesterol 146 LDL Cholesterol, Calc 75 HDL Cholesterol 52 Prostate Specific Ag 1.49 25-OH Vitamin D Total 40.2 TSH 2.62 Ur Specific [place] 1.010 Urine Protein Negative Urine Glucose (UA) Negative Urine Blood Negative Urine Nitrite Negative Ur Leukocyte Esterase Trace H Coding Level of Care Code Est Pt Level 4 (02556) Diagnoses Cryptogenic stroke I63.9 Mixed hyperlipidemia E78.2 Benign essential hypertension I10 Impaired fasting glucose R73.01 GERD without esophagitis K21.9 Erectile dysfunction, unspecified erectile dysfunction type N52.9 Erectile dysfunction type: unspecified Glaucoma of both eyes, unspecified glaucoma type H40.9 Glaucoma type: unspecified Additional Codes PHQ-9 - 86306 - PHQ-9 Billing: Yes ([id number]) Assessment & Plan Assessment & Plan (1) Cryptogenic stroke: Code(s): I63.9 - Cerebral infarction, unspecified Category: Medical Plan: Brain MRI done at [facility] on 04/24/22 revealed (+) scattered right frontal aubacute cortical infarct without hemorrhagic transformation and chronic right pontine and right cerebellar lacunar infarcts and chronic medial left frontal lobe infarct S/P dual antiplatelet Tx with Clopidogrel x 3 weeks, after which Clopidogrel was discontinued tile trimmer done previously was negative for AF or arrhythmias; echocardiogram showed normal EF, no intracardiac thrombus but left atrium was mildly dilated He was seen by [facility] Neurology for follow up and was advised further evaluation of his CVA etiology with an implantable loop recorder Patient recalls being seen by cardiology (Dr. Ian Joshua) sometime last April (2022) and had a loop recorder placed States that his Metoprolol ER was raised from 25 mg QD to 75 mg QD after he had his recorder done as he recalls being told that his recorder showed some abnormality but he could not remember the details of his conversation back then - recorder probably showed (+) PAF He currently remains on Eliquis 5 mg BID; his Aspirin 81 mg was discontinued a while back when he was started on Eliquis States that he has a follow up appointment with his plate glass grinder at [place] next month (May 2024) and have advised patient to remind his plate glass grinder to send over a copy of his OV notes/summary to us as well after he is seen (2) Mixed hyperlipidemia: Code(s): E78.2 - Mixed hyperlipidemia Category: Medical Plan: Results of his labs done last month reviewed and discussed with patient Reinforced low cholesterol diet Continue Atorvastatin 10 mg QD Will recheck his labs and fasting lipids in 6 months for follow up (3) Benign essential hypertension: Code(s): I10 - Essential (primary) hypertension Category: Medical Plan: Reinforced low sodium diet - goal is systolic BP of at least 140 to 150 mm or less Continue Lisinopril 20 mg QD and Metoprolol ER 75 mg QD (dose was raised by cardiology earlier this year) (4) Impaired fasting glucose: Code(s): R73.01 - Impaired fasting glucose Category: Medical Plan: His HgbA1c remains normal at 5.6% on his recent labs Reinforced low calorie diet/exercise as tolerated (5) GERD without esophagitis: Code(s): K21.9 - Gastro-esophageal reflux disease without esophagitis Category: Medical Plan: Dietary restrictions reinforced (6) Erectile dysfunction: Code(s): N52.9 - Male erectile dysfunction, unspecified Category: Medical Qualifiers: Erectile dysfunction type: unspecified Qualified Code(s): N52.9 - Male erectile dysfunction, unspecified Plan: Continue Sildenafil 100 mg QD PRN (7) Glaucoma of both eyes: Code(s): H40.9 - Unspecified glaucoma Category: Medical Qualifiers: Glaucoma type: unspecified Qualified Code(s): H40.9 - Unspecified glaucoma Plan: Continue Alphagan 0.15% 1 drop into each eye 3 times a day, Cosopt 1 drop into each eye twice a day, Lumigan 1 drop into each eye Q 8 hours and Rhopressa 0.02% 1 drop into each eye Q PM Follow up with Ophthalmology (Dr. Kwok) as scheduled Plan As requested, Tdap booster given today Follow up in 6 months Orders: Orders Complete Blood Count Auto Diff 6 Months D64.9 - Anemia, unspecified Hemoglobin A1c 6 Months R73.01 - Impaired fasting glucose TDaP Immunization Today Z23 - Encounter for immunization Lipid Panel 6 Months E78.00 - Pure hypercholesterolemia, unspecified Comprehensive [place]. Panel Fast 6 Months E78.00 - Pure hypercholesterolemia, unspecified TSH reflex Free T4 6 Months E78.00 - Pure hypercholesterolemia, unspecified UA CC w/rflx Micro + Cult 6 Months R30.0 - Dysuria Vitamin D 25-OH Total 6 Months E55.9 - Vitamin D deficiency, unspecified Medications: New Boostrix Tdap (diphth,pertus(acell),tetanus) 0.5 mL IM ONCE 0.5 mL 0RF NS Z23 - Encounter for immunization
[2024-04-22 09:52] VITALS: BP 122/80; PULSE 71; BMI 24.8
== END 2024-04-22 10:36 | disposition home or self-care (01) ==
PROVIDERS: PCP Internal Medicine; Visit Provider Internal Medicine
DX: I63.9 Cerebral infarction, unspecified (principal); E78.2 Mixed hyperlipidemia; I10 Essential (primary) hypertension; R73.01 Impaired fasting glucose; K21.9 Gastro-esophageal reflux disease without esophagitis; N52.9 Male erectile dysfunction, unspecified; H40.9 Unspecified glaucoma; Z23 Encounter for immunization

== ENCOUNTER → 2024-04-22 09:39 | Outpatient (BNVA) | payer MEDICARE, SELFPAY | PROVIDERS: PCP Internal Medicine; Visit Provider Internal Medicine | DX: Z23 Encounter for immunization (principal); I63.9 Cerebral infarction, unspecified; E78.2 Mixed hyperlipidemia; I10 Essential (primary) hypertension; R73.01 Impaired fasting glucose; K21.9 Gastro-esophageal reflux disease without esophagitis; N52.9 Male erectile dysfunction, unspecified; H40.9 Unspecified glaucoma | CPT/HCPCS: 90471; 90715; 96127; 99212 ==

== ENCOUNTER 2024-10-09 06:52 | Outpatient (REF) | payer MEDICARE, SELFPAY ==
[2024-10-09 07:09] LABS: MANUAL DIFF FLAG NO
[2024-10-09 07:22] LABS: Basophils Percent Auto 0.4 % (0-2); Eosinophils Absolute Auto 0.2 X10*3/uL (0.0-0.4); Eosinophils Percent Auto 2.5 % (0-4); Hematocrit 40.9 % (42.0-52.0); Hemoglobin 13.8 g/dl (14.0-18.0); Imm Gran Abs Auto 0.01 X10*3/uL (0.00-0.03); Imm Gran Pct Auto 0.1 % (0.0-0.4); Lymphocytes Absolute Auto 3.6 X10*3/uL (1.2-4.9); Lymphocytes Percent Auto 47.4 % (20-40); Mean Corpuscular HGB Conc 33.7 g/dl (31.0-36.0); Mean Corpuscular Hemoglobin 30.9 pg (27.0-33.0); Mean Corpuscular Volume 91.5 fL (80.0-98.0); Mean Platelet Volume 10.3 fL (9.4-12.4); Monocytes Absolute Auto 0.6 X10*3/uL (0.1-1.2); Monocytes Percent Auto 7.8 % (2-11); Neutrophils Absolute Auto 3.2 x10*3/uL (2.0-8.3); Neutrophils Percent Auto 41.8 % (45-73); Platelet Count 167 X10*3/uL (160-400); Red Blood Count 4.47 X10*6/uL (4.60-5.80); Red Cell Distribution Width 12.3 % (11.0-16.0); White Blood Count 7.6 X10*3/uL (4.8-10.8)
[2024-10-09 07:41] LABS: Estimated Average Glucose 117 mg/dL; Hemoglobin A1C 140.8262 umol/L; Hemoglobin A1c % 5.7 % (<6.0); Total Hemoglobin (HGBA1C) 3633.7258 umol/L
[2024-10-09 08:00] LABS: Alanine Aminotransferase 27 U/L (0-40); Albumin Level 4.5 g/dL (3.5-5.0); Alkaline Phosphatase 62 U/L (39-117); Anion Gap 11 (12-20); Aspartate Amino Transferase 31 U/L (5-37); Bilirubin Total 1.2 mg/dL (0.0-1.0); Blood Urea Nitrogen 13 mg/dL (9-16); Carbon Dioxide 27 mmol/L (22-29); Chloride 106 mmol/L (96-108); Cholesterol 142 mg/dL (<200); Estimated Glomerular Filt Rate > 60; Glucose Fasting 96 mg/dL (60-99); HDL Cholesterol 50 mg/dL (>40); LDL Cholesterol Calculated 73 mg/dL (<100); Potassium 4.1 mmol/L (3.3-5.1); Sodium 140 mmol/L (135-145); Total Protein 7.1 g/dL (6.5-8.0); Triglycerides 95 mg/dL (<150)
[2024-10-09 08:14] LABS: Appearance Urine Clear; Color Urine Yellow; Glucose Urine UA Negative (Negative); Leukocyte Esterase Urine Negative (Negative); Nitrite Urine Negative (Negative); PH 5.5 (5.0-9.0); Urine Blood Negative (Negative); Urine Ketones Trace mg/dL (Negative); Urine Protein Negative (Neg-Trace)
[2024-10-09 08:14] LABS: TSH reflex Free T4 3.36 uIU/mL (0.32-4.0); Vitamin D 25-OH Total 39.9 ng/mL (>30)
== END 2024-10-09 06:53 | disposition home or self-care (01) ==
LOC: HO.LAB 06:52
PROVIDERS: PCP Internal Medicine; Visit Provider Internal Medicine
DX: D64.9 Anemia, unspecified (principal); E78.00 Pure hypercholesterolemia, unspecified; E55.9 Vitamin D deficiency, unspecified; R30.0 Dysuria; R73.01 Impaired fasting glucose
CPT/HCPCS: 36415; 80053; 80061; 81003; 82306; 83036; 84443; 85025

== ENCOUNTER 2024-10-29 14:27 | Outpatient (AMB) | payer MEDICARE, SELFPAY ==
[2024-10-29 14:30] VITALS: BP 136/66; PULSE 55; RESP 16; TEMP 36.3; O2SAT 99; BMI 24.7
--- NOTE | 2024-10-29 14:30 | A.OFFPC_ITS ---
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 Accompanied by: Self / Same As Patient Allergies vaccine adjuvant system, AS01B lipo (Shingrix (PF)) Adverse Reaction (Unknown, Verified 10/29/24 17:45) flu-like symptoms, bruising, fever varicella-zoster virus glycoprotein (Shingrix (PF)) Adverse Reaction (Unknown, Verified 10/29/24 17:45) flu-like symptoms, bruising, fever Medication List - Last Reconciled 10/29/24 by PAUL Duran apixaban (Eliquis) 5 mg PO BID atorvastatin 10 mg PO BEDTIME 90 days bimatoprost 0.01% (Lumigan) 1 drp ophthalmic (eye) QPM brimonidine 0.1% 1 drp ophthalmic (eye) Q8H dorzolamide-timolol 22.3-6.8 mg/mL 1 drp ophthalmic (eye) BID lisinopril 20 mg PO DAILY metoprolol succinate ER 75 mg PO DAILY netarsudil 0.02% (Rhopressa) 1 drp ophthalmic (eye) QPM sildenafil 100 mg PO DAILY PRN Tobacco use date assessed: 10/29/24 Fall risk assessment: 1 Fall in past year Last assessed Fall Risk: 10/29/24 Dental Screening Dental Screen Date: 10/29/24 Did you have a dental visit in the last 12 months?: Yes Did you have a dental problem in the last 6 months where you did not have access to dental care?: No Was dental information given to patient?: Patient has dentist HPI cryptogenic stroke, hyperlipidemia, HTN HPI Details The patient is a 79-year-old male presenting for routine follow-up of chronic conditions. He has a history of anemia with blood work showing slight fluctuations in red blood cell count, though not severe. He has managed this condition consistently over previous examinations without significant concern. He has had a slight stroke in the past and maintains regular follow-ups with a specialist icu. He has an implantable cardioverter defibrillator (cardio loop) for constant cardiac monitoring. No significant issues have been reported from this device currently. The patient's urinary habits include nocturia, attributed to his age, without any associated pain or abdominal changes. He is on anticoagulation therapy with Eliquis, which he reports results in an increased tendency for bruising, especially during outdoor work. Prostate-specific antigen testing remains on schedule, with previous results showing normal values. [facility] Medical History Paroxysmal atrial fibrillation Cryptogenic stroke Glaucoma of both eyes Erectile dysfunction GERD without esophagitis Impaired fasting glucose Mixed hyperlipidemia Benign essential hypertension Surgical History Hx of colonoscopy (~05/02/14) H/O basal cell carcinoma excision Family History Father Colon cancer Mother No problems noted. Social History Housing: House Alcohol intake: current Alcohol intake frequency: holidays/special occasions only Alcohol type: wine Patient Tobacco Use Status: Never used Tobacco e-Cigarette/Vaping Use: Never Used Second Hand Smoke Exposure: Yes service: Yes Current occupational status: retired Cognitive needs: No Hearing needs: No Vision needs: Yes (Reading glasses) Questionnaire PHQ-9 Over the last 2 weeks, how often have you been bothered by any of the following problems? 1. Little interest or pleasure in doing things: not at all 2. Feeling down, depressed, or hopeless: not at all 3. Trouble falling or staying asleep, or sleeping too much: not at all 4. Feeling tired or having little energy: not at all 5. Poor appetite or overeating: not at all 6. Feeling bad about yourself - or that you are a failure or have let yourself or your family down: not at all 7. Trouble concentrating on things, such as reading the newspaper or watching television: not at all 8. Moving or speaking so slowly that other people could have noticed. Or the opposite - being so fidgety or restless that you have been moving around a lot more than usual: not at all 9. Thoughts that you would be better off or of hurting yourself in some way: not at all Total score: 0 Depression Screening Interpretation: Negative Depression Screening Done: Yes 09457 - PHQ-9 Billing: Yes Source: Developed by Drs. Iban Moreland, Eleni Nicole, Vimal House and colleagues, with an educational daniel from [employer]. Thrive Questionnaire Date Thrive assessed: 10/29/24 I am a: Patient What is your living situation today?: I have a steady place to live Within the past 12 months, did the food you bought not last and you didn't have the money to get more?: Never true Within the past 12 months, did you worry whether your food would run out before you got money to buy more?: Never true Do you have trouble paying for medicines?: No Do you have trouble getting transportation to medical appointments?: No Do you have trouble paying your heating and electricity bill?: No Do you have trouble taking care of your child, family member or friend?: No Do you have trouble with day-to-day activities such as bathing, preparing meals, shopping, managing finances, etc.?: No Are you currently unemployed and looking for a job?: No Are you interested in more education?: No Please select the resources that you would like help with: None Currently or been in a relationship where the following occur: No concerns reported THRIVE Score: 0 AUDIT C Alcohol Use Questionnaire (AUDIT-C) 1. How often do you have a drink containing alcohol?: 2-4 times a month 2. How many drinks containing alcohol do you have on a typical day when you are drinking?: 1 or 2 3. How often do you have six or more drinks on one occasion?: Never Total Score: 2 Score Reviewed/Action Taken: No CARI-7 AMB Questionnaire CARI-7 Date CARI - 7 assessed: 10/29/24 Feeling nervous, anxious, or on edge: 0 = Not at all Not being able to stop or control worryin = Not at all Worrying too much about different things: 0 = Not at all Trouble relaxin = Not at all Being so restless that it is hard to sit still: 0 = Not at all Becoming easily annoyed or irritable: 0 = Not at all Feeling afraid as if something awful might happen: 0 = Not at all Total CARI-7 score (0-4 normal; 5-9 mild; 10-14 moderate; 15-21 severe): 0 Source: Developed by Drs. Iban Moreland, Eleni Nicole, Vimal House and colleagues, with an educational daniel from [employer]. CARI-7 Assessment Billing CARI-7 Assessment Tool: CARI-7 Assessment 62588 Review of Systems Const Denies headache(s) Eyes Denies loss of vision ENT Denies vertigo, Denies dizziness, Denies headache(s) and Denies sore throat Card Denies chest pain, Denies leg edema and Denies lightheadedness Resp Denies cough, Denies hemoptysis and Denies wheezing GI Denies abdominal pain, Denies melena, Denies constipation, Denies diarrhea and Denies vomiting Denies dysuria, Reports nocturia (however, he then reports that it was once a night), Denies urinary frequency and Denies urinary urgency Musc Denies arthralgias, Denies joint swelling, Denies numbness and Denies tingling Neuro Denies Abnormal speech present, Denies behavioral changes, Denies vertigo, Denies dizziness, Denies headache(s), Denies loss of vision, Denies memory loss, Denies numbness and Denies tingling Psych Denies anxiety, Denies behavioral changes, Denies depression, Denies memory loss and Denies panic attacks Alexandru/Lymph Denies easy bleeding and Reports easy bruising (On blood thinner) Aller/Immun Denies wheezing Physical exam (Primary Care) Vital Signs: Last Vital Signs Temp 97.4 F 10/29/24 14:30 Pulse 55 10/29/24 14:30 Resp 16 10/29/24 14:30 BP 136/66 10/29/24 14:30 Pulse Ox 99 10/29/24 14:30 Oxygen Delivery Method Room Air 10/29/24 14:30 BMI result Body Mass Index 24.7 Tobacco/Smoking Status: Tobacco use Status Tobacco use date assessed 10/29/24 10/29/24 14:42 Patient Tobacco Use Status Never used Tobacco 10/29/24 14:42 e-Cigarette/Vaping Use Never Used 10/29/24 14:42 PHQ-9: PHQ-9 Score PHQ-9: Total score 0 10/29/24 17:50 Depression Screening Interpretation: Negative Thrive Assessment: Date of Thrive Assessment Date Thrive assessed 10/29/24 10/29/24 14:42 Currently or been in a relationship where the following occur: No concerns reported Const General: healthy appearing, no acute distress, alert and awake Nutritional Appearance: well nourished Orientation/consciousness: oriented to person, oriented to place and oriented to time HENMT Ears: TM's normal bilaterally General nose exam: Normal nasal mucous membranes and turbinates present Eyes Conjunctivae: conjunctivae normal Sclerae: sclerae normal Pupils: Equal, round and reactive pupils present Neck Neck: Yes no lymphadenopathy and Yes no JVD Thyroid: Thyroid normal Carotids: no bruits Resp Effort & Inspection: normal respiratory effort and not tachypneic Auscultation: no crackles, no rales, no rhonchi and no wheezes Cardio Rate: regular rate Rhythm: regular rhythm Heart sounds: no murmurs and normal S1 and S2 GI Palpation (GI): Soft to palpation, nontender, no hepatomegaly and no splenomegaly Auscultation: normal bowel sounds Skin General skin exam: no rashes or lesions noted and dry skin Neuro General: oriented to person, oriented to place and oriented to time Cranial nerves: Yes Equal, round and reactive pupils present Speech: No Abnormal speech present Gait exam (Neuro): Normal gait present Motor exam (neuro): no tremor noted Extrem Right upper extremity: full ROM Left upper extremity: full ROM Right lower extremity: full ROM; no edema Left lower extremity: full ROM; no edema Psych Mental Status: mental status grossly normal Speech and movement: Normal speech and movement present Affect: normal affect Attitude: cooperative Thought process: Normal thought process present Results Reviewed Results Reviewed: Laboratory Tests 10/09/24 10/09/24 07:00 07:07 WBC 7.6 RBC 4.47 L Hgb 13.8 L Hct 40.9 L MCV 91.5 MCH 30.9 MCHC 33.7 RDW 12.3 Plt Count 167 MPV 10.3 Sodium 140 Potassium 4.1 Chloride 106 Carbon Dioxide 27 Anion Gap 11 L BUN 13 Creatinine 1.06 Estimated GFR > 60 Fasting Glucose 96 Estimat Average Glucose 117 Hemoglobin A1c % 5.7 Calcium 9.0 D Total Bilirubin 1.2 H AST 31 ALT 27 Alkaline Phosphatase 62 Total Protein 7.1 Albumin 4.5 Triglycerides 95 Cholesterol 142 LDL Cholesterol, Calc 73 HDL Cholesterol 50 25-OH Vitamin D Total 39.9 TSH 3.36 Urine Color Yellow Urine Appearance Clear Urine pH 5.5 Ur Specific [place] 1.010 Urine Protein Negative Urine Glucose (UA) Negative Urine Ketones Trace Urine Blood Negative Urine Nitrite Negative Ur Leukocyte Esterase Negative Coding Level of Care Code Est Pt Level 4 (51046) Diagnoses Cryptogenic stroke I63.9 Mixed hyperlipidemia E78.2 Benign essential hypertension I10 Impaired fasting glucose R73.01 GERD without esophagitis K21.9 Erectile dysfunction, unspecified erectile dysfunction type N52.9 Erectile dysfunction type: unspecified Glaucoma of both eyes, unspecified glaucoma type H40.9 Glaucoma type: unspecified Additional Codes CARI-7 Assessment Billing - CARI-7 Assessment Tool: CARI-7 Assessment 47372 ([id number]) PHQ-9 - 64517 - PHQ-9 Billing: Yes ([id number]) Time Spent (min) 37 Assessment & Plan Assessment & Plan (1) Cryptogenic stroke: Code(s): I63.9 - Cerebral infarction, unspecified Category: Medical Plan: Brain MRI done at [facility] on 04/24/22 revealed (+) scattered right frontal aubacute cortical infarct without hemorrhagic transformation and chronic right pontine and right cerebellar lacunar infarcts and chronic medial left frontal lobe infarct S/P dual antiplatelet Tx with Clopidogrel x 3 weeks, after which Clopidogrel was discontinued 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 (2) Mixed hyperlipidemia: Code(s): E78.2 - Mixed hyperlipidemia Category: Medical Plan: Results of his labs done last month reviewed and discussed with patient Reinforced low cholesterol diet Continue Atorvastatin 10 mg QD Will recheck his labs and fasting lipids in 6 months for follow up (3) Benign essential hypertension: Code(s): I10 - Essential (primary) hypertension Category: Medical Plan: Reinforced low sodium diet - goal is systolic BP of at least 150 mm hg Continue Lisinopril 20 mg QD and Metoprolol ER 75 mg QD (dose was raised by cardiology last year) (4) Impaired fasting glucose: Code(s): R73.01 - Impaired fasting glucose Category: Medical Plan: His HgbA1c remains normal at 5.7% on his recent labs Reinforced low calorie diet/exercise as tolerated (5) GERD without esophagitis: Code(s): K21.9 - Gastro-esophageal reflux disease without esophagitis Category: Medical Plan: Do not eat meals or drink carbonated beverages within 3 hr of bedtime Decrease the amount of fried, fatty, and spicy foods to decrease gastric acid production Raise the head of the bed using 4 to 6-inch blocks, especially if nocturnal symptoms are present Lose weight if indicated; avoid tight-fitting clothing, especially around the waist Avoid foods that relax the Lower esophageal sphincter (chocolate, peppermint, high-fat foods etc.,) (6) Erectile dysfunction: Code(s): N52.9 - Male erectile dysfunction, unspecified Category: Medical Qualifiers: Erectile dysfunction type: unspecified Qualified Code(s): N52.9 - Male erectile dysfunction, unspecified Plan: Continue Sildenafil 100 mg QD PRN (7) Glaucoma of both eyes: Code(s): H40.9 - Unspecified glaucoma Category: Medical Qualifiers: Glaucoma type: unspecified Qualified Code(s): H40.9 - Unspecified glaucoma Plan: Continue Alphagan 0.15% 1 drop into each eye 3 times a day, Cosopt 1 drop into each eye twice a day, Lumigan 1 drop into each eye Q 8 hours and Rhopressa 0.02% 1 drop into each eye Q PM Follow up with Ophthalmology (Dr. Kwok) as scheduled Plan Follow up in 6 months Orders: Orders Complete Blood Count Auto Diff 6 Months I48.0 - Paroxysmal atrial fibrillation, I63.9 - Cerebral infarction, unspecified, G45.9 - Transient cerebral ischemic attack, unspecified, K21.9 - Gastro-esophageal reflux disease without esophagitis, R73.01 - Impaired fasting glucose, E78.2 - Mixed hyperlipidemia, I10 - Essential (primary) hypertension Comprehensive [place]. Panel Fast 6 Months I48.0 - Paroxysmal atrial fibrillation, I63.9 - Cerebral infarction, unspecified, G45.9 - Transient cerebral ischemic attack, unspecified, K21.9 - Gastro-esophageal reflux disease without esophagiti s, R73.01 - Impaired fasting glucose, E78.2 - Mixed hyperlipidemia, I10 - Essential (primary) hypertension TSH reflex Free T4 6 Months I48.0 - Paroxysmal atrial fibrillation, I63.9 - Cerebral infarction, unspecified, G45.9 - Transient cerebral ischemic attack, unspecified, K21.9 - Gastro-esophageal reflux disease without esophagitis, R73.01 - Impaired fasting glucose, E78.2 - Mixed hyperlipidemia, I10 - Essential (primary) hypertension UA CC w/rflx Micro + Cult 6 Months I48.0 - Paroxysmal atrial fibrillation, I63.9 - Cerebral infarction, unspecified, G45.9 - Transient cerebral ischemic attack, unspecified, K21.9 - Gastro-esophageal reflux disease without esophagitis, R73.01 - Impaired fasting glucose, E78.2 - Mixed hyperlipidemia, I10 - Essential (primary) hypertension Vitamin B6 6 Months I48.0 - Paroxysmal atrial fibrillation, I63.9 - Cerebral infarction, unspecified, G45.9 - Transient cerebral ischemic attack, unspecified, K21.9 - Gastro-esophageal reflux disease without esophagitis, R73.01 - Impaired fasting glucose, E78.2 - Mixed hyperlipidemia, I10 - Essential (primary) hypertension Lipid Panel 6 Months I48.0 - Paroxysmal atrial fibrillation, I63.9 - Cerebral infarction, unspecified, G45.9 - Transient cerebral ischemic attack, unspecified, K21.9 - Gastro-esophageal reflux disease without esophagitis, R73.01 - Impaired fasting glucose, E78.2 - Mixed hyperlipidemia, I10 - Essential (primary) hypertension PSA,Total (Free>4and<10) 6 Months I48.0 - Paroxysmal atrial fibrillation, I63.9 - Cerebral infarction, unspecified, G45.9 - Transient cerebral ischemic attack, unspecified, K21.9 - Gastro-esophageal reflux disease without esophagitis, R73.01 - Impaired fasting glucose, E78.2 - Mixed hyperlipidemia, I10 - Essential (primary) hypertension
--- OUTSIDE RECORDS SUMMARY | 2024-10-29 16:45 | XMS_ITS | Clinical Summary ---
Author Organization [address] [place] [address] [place] [phone] Phone Care Team Providers Care Mat Inspector Name Role Phone Ion Kwong MD Primary Care Provider + [phone] Allergies No known active allergies Medications sildenafiL (VIAGRA) 100 mg tablet Take 1 tablet (100 mg total) by mouth as needed. Active dorzolamide-celsa oloL (COSOPT) 22.3-6.8 mg/mL ophthalmic solution 1 Drop 2 times daily. Active bimatoprost (LUMIGAN) 0.01 % ophthalmic drops apply to the eye. Active brimonidine (ALPHAGAN P) 0.1 % ophthalmic solution Active atorvastatin (LIPITOR) 10 mg tablet Take 1 Tablet by mouth at bedtime. Active netarsudiL (Rhopressa) 0.02 % drops Administer into affected eye(s). Active apixaban (Eliquis) 5 mg tablet TAKE 1 TABLET TWICE A DAY 180 tablet 1 5 Active metoprolol succinate (TOPROL-XL) 50 mg 24 hr tablet TAKE 1 AND 1/2 TABLETS DAILY 135 tablet 3 5 Active Active Problems Problem Noted Date Diagnosed Date A-fib (CMS/HCC V24, CMS/HCC V28) 06/02/2023 Overview (04/09/2024): Last Assessment & Plan: Paroxysmal A-fib presently asymptomatic. Continue rate control metoprolol and anticoagulation with Eliquis. I favor continuing the ILR for a bit longer to assess his burden of A-fib although this will need to be removed eventually. Assessment & Plan (06/10/2024 11:59 AM EST): Paroxysmal atrial fibrillation. Continue anticoagulation with Eliquis. Rate control with metoprolol is reasonable. If he develops new symptoms such as palpitations, presyncope or syncope he will let us know. The ILR has significant battery life and patient is inclined to keep it in place which will allow us to monitor his A- fib. This is reasonable. 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 Echocardiogram was reviewed and did not demonstrate any concerning findings. ILR demonstrated paroxysmal atrial fibrillation. The patient is appropriately taking anticoagulation for thromboembolic prophylaxis Encounters Date Type Department Care Team Description 09/24/2024 2:30 PM EDT Ancillary Procedure [facility] - [address] [place] [address] 08/20/2024 6:45 PM EDT Ancillary Procedure [facility] - [address] [place] [address] 08/17/2024 12:30 AM EDT Ancillary Procedure [facility] - [address] [place] [address] 08/16/2024 11:10 PM EDT Ancillary Procedure [facility] - [address] [place] [address] 08/16/2024 8:05 PM EDT Ancillary Procedure [facility] - [address] [place] [address] 07/30/2024 Telephone [facility] Cardiology Located Within [facility] [address] [place] [address] Ian Joshua MD lab slip (Lab slip ) from Last 3 Months Medical History Medical History Date Comments HTN (hypertension) DX:HTN (hyper tension) IFG (impaired fasting glucose) D X:IFG (impaired fasting glucose) Social History Tobacco Use Types Packs/Day Years Used Date Smoking Tobacco: Never Smokeless Tobacco: Never Alcohol Use Standard Drinks/Week Comments Yes 0 (1 standard drink = 0.6 oz pur e alcohol) Sex and Gender Information Value Date Recorded Sex Assigned at Not on file Legal Sex Male 8:15 PM EST Gender Identity Not on file Sexual Orientation Not on file Obstetrics History Last Filed Vital Signs Vital Sign Reading Time Taken Comments Blood Pressure 120/72 06/07/2024 3:47 PM EST Pulse 60 06/07/2024 3:47 PM EST Temperature - - Respiratory Rate - - Oxygen Saturation 98% 06/07/2024 3:47 PM EST Inhaled Oxygen Concentration - - Weight 73.5 kg (162 lb) 06/07/2024 3:47 PM EST Height 170.2 cm (5' 7 ) 06/07/2024 3:47 PM EST Body Mass Index 25.37 06/07/2024 3:47 PM EST Plan of Treatment Health Maintenance Due Date Last Done Comments Zoster Vaccines (3 of 3) 02/06/2019 019, 12/26/2014, 12/26/2013 RSV Immunization Adult Patients (1 - 1-dose 75+ series) 2020 Cholesterol Screening (Lipid Panel) 06/08/2023 Depression Screening 06/08/2023 Falls Risk Assessment 06/08/2023 Hepatitis C Screening 06/08/2023 Medicare Annual Wellness Visit 06/08/2023 Social Influencers of Health Screening 06/08/2023 COVID-19 Vaccine ( season) 2024 03/09/2022, 03/11/2021, 08/24/2020, Additional history exists Hypertension/CHF/CAD Annual BMP Blood Test 08/05/2025 08/05/2024 DTaP,Tdap,and Td Vaccines (2 - Td or Tdap) 04/22/2034 04/22/2024 Pneumococcal Vaccine: 50+ Years Completed 03/12/2018, 11/09/2011 Influenza Vaccine Completed 02/22/2024, , 02/23/2022, Additional history exists HIB Vaccines Aged Out No longer eligi ble based on patient's age to complete this topic HPV Vaccines Aged Out No longer eligi ble based on patient's age to complete this topic Hepatitis A Vaccines Aged Out No long er eligible based on patient's age to complete this topic Hepatitis B Vaccines Aged Out No long er eligible based on patient's age to complete this topic IPV Vaccines Aged Out No longer eligi ble based on patient's age to complete this topic MMR Vaccines Aged Out No longer eligi ble based on patient's age to complete this topic Meningococcal ACWY Vaccine Aged Out N o longer eligible based on patient's age to complete this topic Meningococcal B Vaccine Aged Out No l onger eligible based on patient's age to complete this topic RSV Immunization Patients Under 20 months Aged Out No longer eligible based on patient's age to complete this topic Varicella Vaccines Aged Out No longer eligible based on patient's age to complete this topic Medical Devices Implanted Type Area Mechanic Sound Technician Device Identifier Shelf Expiration Date Model / Serial / Lot Bsci-Crm [id number] Implanted:12/2022 (Quantity not on file) Cardiac Loop Recorder [employer] CARD RHYTHM MGMT [id number] / [id number] / Procedures Procedure Name Priority Date/Time Associated Diagnosis Comments CARDIAC DEVICE CHECK- REMOTE- MURJ Routine 09/24/2024 2:26 PM EDT CARDIAC DEVICE CHECK- REMOTE- MURJ Routine 08/20/2024 6:41 PM EDT CARDIAC DEVICE CHECK- REMOTE- MURJ Routine 08/17/2024 12:28 AM EDT CARDIAC DEVICE CHECK- REMOTE- MURJ Routine 08/16/2024 11:05 PM EDT CARDIAC DEVICE CHECK- REMOTE- MURJ Routine 08/16/2024 8:00 PM EDT SPECIMEN STATUS REPORT Routine 08/05/2024 11:27 AM EDT BASIC METABOLIC PANEL Routine 08/05/2024 11:27 AM EDT from Last 3 Months Results * Cardiac device check - Remote- MURJ (09/24/2024 2:26 PM EDT) Only the most recent of5 resultswithin the time period is included. Date Time Interrogation Session [id number] CV DEVICE CHECK Type Interrogation Session Remote Scheduled CV DEVICE CHECK Implantable Pulse Generator Mechanic Sound Technician BSX CV DEVICE CHECK Implantable Pulse Generator Type ILR CV DEVICE CHECK Implantable Pulse Generator Model M301 CV DEVICE CHECK Implantable Pulse Generator Serial Number [id number] CV DEVICE CHECK Implantable Pulse Generator Implant Date [id number] CV DEVICE CHECK Battery Status Beginning of Service CV DEVICE CHECK Date of Service 2024-09-30 CV DEVICE CHECK Anatomical Region Laterality Modality Device Interroga tion 09/23/2024 1:02 AM EDT Impressions 09/24/2024 12:23 PM EDT Normal Remote: No Events * This is a normal remote diagnostic device check * Alerts or events: None * Battery data was reviewed * Battery status: ANA, * Presenting rhythm reviewed * Heart Rate Histograms reviewed Narrative Procedure Note Cirilo Diallo MD - 09/24/2024 IMPRESSION: Normal Remote: No Events * This is a normal remote diagnostic device check * Alerts or events: None * Battery data was reviewed * Battery status: ANA, * Presenting rhythm reviewed * Heart Rate Histograms reviewed Cirilo Diallo MD CV IMPLANTABLE CARDIAC DEVICE PROCEDURES Final Result * SPECIMEN STATUS REPORT (08/05/2024 11:27 AM EDT) Specimen Status Report Comment [facility] 1 Comment: Ambig Abbrev BMP8 Default Ambig Abbrev BMP8 Default A hand-written panel/profile was received from your office. In accordance with the [facility] Ambiguous Test Code Policy dated November 2002, we have completed your order by using the closest currently or formerly recognized AMA panel. ??We have assigned Basic Metabolic Panel (8), Test Code #985428 to this request. If this is not the testing you wished to receive on this specimen, please contact the [facility] Client Inquiry/Technical Services Department to clarify the test order. ??We appreciate your business. 08/05/2024 11:2 7 AM EDT 08/05/2024 Narrative [facility] 1 - 08/06/2024 9:07 AM EDT Performed at: ??01 - [facility] [address] ??[id number] Presser First: Monica Galvan MD, Phone: ??[phone] Ian Joshua MD LAB BLOOD ORDERABLES Final Resul t [facility] * (ABNORMAL) Basic metabolic panel (08/05/2024 11:27 AM EDT) Glucose 101(H) 70 - 99 mg/dL [facility] 1 Blood Urea Nitrogen (BUN) 11 8 - 27 mg/dL [facility] 1 Creatinine 0.94 0.76 - 1.27 mg/dL [facility] 1 eGFR 83 >59 mL/min/1.7 3 [facility] 1 BUN/Creatinine Ratio 12 10 - 24 [facility] 1 Sodium 141 134 - 144 mmol/L [facility] 1 Potassium 4.2 3.5 - 5.2 mmol/L [facility] 1 Chloride 101 96 - 106 mmol/L [facility] 1 Carbon Dioxide 25 20 - 29 mmol/L [facility] 1 Calcium 9.3 8.6 - 10.2 mg/dL [facility] 1 08/05/2024 11:2 7 AM EDT 08/05/2024 Narrative [facility] - 08/06/2024 9:07 AM EDT Performed at: ??01 - [facility] [address] ??[id number] Presser First: Monica Galvan MD, Phone: ??[phone] Ian Joshua MD LAB BLOOD ORDERABLES Final Resul t [facility] 1 from Last 3 Months Insurance MEDICARE [facility] Care Teams Mat Inspector Relationship Specialty Start Date End Date Ion Kwong MD [address] [place] [address] [address] [place], [place] PCP - General 10/12/22
== END 2024-10-29 15:08 | disposition home or self-care (01) ==
LOC: HO.HMCH 14:27
PROVIDERS: PCP Internal Medicine
DX: I63.9 Cerebral infarction, unspecified (principal); E78.2 Mixed hyperlipidemia; I10 Essential (primary) hypertension; R73.01 Impaired fasting glucose; K21.9 Gastro-esophageal reflux disease without esophagitis; N52.9 Male erectile dysfunction, unspecified; H40.9 Unspecified glaucoma

== ENCOUNTER → 2024-10-29 14:27 | Outpatient (BNVA) | payer MEDICARE, SELFPAY | PROVIDERS: PCP Internal Medicine | DX: I63.9 Cerebral infarction, unspecified (principal); E78.2 Mixed hyperlipidemia; R73.01 Impaired fasting glucose; I10 Essential (primary) hypertension; K21.9 Gastro-esophageal reflux disease without esophagitis; N52.9 Male erectile dysfunction, unspecified; H40.9 Unspecified glaucoma | CPT/HCPCS: 96127; 99212 ==

== ENCOUNTER 2025-03-27 07:13 | Outpatient (REF) | payer MEDICARE, SELFPAY ==
--- OUTSIDE RECORDS SUMMARY | 2025-03-27 07:17 | XMS_ITS | Patient Health Record ---
Author Organization [facility] Address [address] [place] [phone] Care Team Providers Care Mortgage Collector Name Role Phone Tiburcio (RETIRED) Ulises ZUNIGA Primary Care Provide marleny Padilla Jr Chevy Unavailable Allergies Allergen (clinical drug ingredient) Drug/Non Drug Allergy documented on EMR Reaction Allergy Type Onset Date Status hayfever (uncoded) Unknown Allergy A ctive seasonal allergic rhinitis (uncoded) Unknown Allergy Active Reason For Referral No Information Medications Medication SIG (Take, Route, Frequency, Duration) Notes Start Date End Date Status Lisinopril 20 MG 1 tablet Orally Once a day Active Dorzolamide HCl-Timolol Mal 22.3-6.8 MG/ML 1 drop into affected eye Ophthalmic Twice a day Active Metoprolol Succinate ER 25 MG 1 tablet Orally Once a day Active Alphagan P 0.15 % 1 drop into affected eye Ophthalmic Three times a day Active Lumigan 0.01 % 1 drop into affected eye in the evening Ophthalmic Once a day Active Niacin 250 MG 1 tablet Orally Once a day Active Aspirin 81 MG 1 tablet Orally Once a day Active Problems Problem Type SNOMED Code ICD Code Onset Dates Problem Status W/U Status Risk Notes Problem Colon cancer screening (850783321) Colon cancer screening (V76.51) Active confirmed Problem Long-term current use of aspirin (9296715614688 03) Aspirin long-term use (V58.66) Active confirmed Plan Of Treatment Future Test Test Name Order Date COLONOSCOPY 02/05/2014 Insurance Providers Payer Name Payer Address Payer Phone Subscriber Number Group Number Insured Name Patient Relationship to Insured Coverage Start Date Coverage End Date MEDICARE OF [place] [address] [place] [id number] SHAY MANNING Self - patient is the insured [employer] ATT[employer] CLAIMS [address] [place] [address] [id number] SHAY MANNING Self - patient is the insured Medical (General) History Medical History History ICD Code colonoscopy 02/13/2004 hypertension glaucoma Denies [place],DM,CVA,Lung disease,renal dise ase hyperlipidemia Surgical History Surgery Date(Month/Year) eye surgery
--- OUTSIDE RECORDS SUMMARY | 2025-03-27 07:17 | XMS_ITS | Clinical Summary ---
Author Organization [address] [place] [address] [place] [phone] Phone Care Team Providers Care Credit Negotiator Name Role Phone Ion Kwong MD Primary Care Provider + [phone] Allergies No known active allergies Medications sildenafiL [...] % drops Administer into affected eye(s). Active metoprolol succinate (TOPROL-XL) 50 mg 24 hr tablet Take 1 tablet (50 mg total) by mouth 2 (two) times a day. 180 tablet 1 5 Active apixaban (Eliquis) 5 mg tablet Take 1 tablet (5 mg total) by mouth 2 (two) times a day. 180 tablet 1 5 Active lisinopriL (PRINIVIL,ZESTR IL) 20 mg tablet Take 1 tablet (20 mg total) by mouth 1 (one) time each day. 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 Echocardiogram was reviewed and did not demonstrate any concerning findings. ILR demonstrated paroxysmal atrial fibrillation. The patient is appropriately taking anticoagulation for thromboembolic prophylaxis Encounters Date Type Department Care Team Description 03/06/2025 1:25 PM EDT Ancillary Procedure [facility] Cardiology [facility] - [address] [place] [address] 01/28/2025 11:55 AM EDT Ancillary Procedure [facility] Cardiology [facility] - [address] [place] [address] 01/28/2025 11:50 AM EDT Ancillary Procedure [facility] Cardiology [facility] - [address] [place] [address] 01/28/2025 Telephone [facility] Cardiology [facility] - [address] [place] [address] Laurel Kwan PA 01/14/2025 Telephone [facility] Cardiology [facility] [address] [place] [address] Ian Joshua MD from Last 3 Months Medical History Medical [...] 06/07/2024 3:47 PM EST Plan of Treatment Upcoming Encounters Date Type Department Care Team (Late st Contact Info) Description 06/10/2025 1:10 PM EST Office Visit [facility] Cardiology [facility] [address] [place] [phone] Juanpablo Foley NP [address] [place] [address] [address] [place] [phone] Health Maintenance Due Date Last Done Comments Zoster Vaccines (3 of 3) 02/06/2019 019, 12/26/2014, 12/26/2013 RSV Immunization Adult Patients (1 - 1-dose 75+ series) 2020 Cholesterol Screening (Lipid Panel) 06/08/2023 Falls Risk Assessment 06/08/2023 Hepatitis C Screening 06/08/2023 Medicare Annual Wellness Visit 06/08/2023 Social Influencers of Health Screening 06/08/2023 Depression Screening 05/15/2024 COVID-19 Vaccine ( season) 2025 03/09/2022, 03/11/2021, 08/24/2020, Additional history exists Hypertension/CHF/CAD Annual BMP Blood Test 08/05/2025 08/05/2024 DTaP,Tdap,and Td Vaccines (2 - Td or Tdap) 04/22/2034 04/22/2024 Pneumococcal Vaccine: 50+ Years Completed 03/12/2018, 11/09/2011 Influenza Vaccine Completed 02/24/2025, , 03/06/2023, Additional history exists HIB Vaccines Aged Out [...] this topic Medical Devices Implanted Type Area Radio Announcer Device Identifier Shelf Expiration Date Model / Serial / Lot Bsci-Crm [id number] Implanted:12/2022 (Quantity not on file) Cardiac Loop Recorder Polar CARD RHYTHM MGMT M301 / [id number] / Procedures Procedure Name Priority Date/Time Associated Diagnosis Comments CARDIAC DEVICE CHECK- REMOTE- MURJ Routine 03/06/2025 1:23 PM EDT CARDIAC DEVICE CHECK- REMOTE- MURJ Routine 01/28/2025 11:51 AM EDT CARDIAC DEVICE CHECK- REMOTE- MURJ Routine 01/28/2025 11:45 AM EDT BASIC METABOLIC PANEL Routine 08/05/2024 11:27 AM EDT from Last 3 Months or Most Recently Relevant to Health Maintenance Results * Cardiac device check - Remote- MURJ (03/06/2025 1:23 PM EDT) Only the most recent of3 resultswithin the time period is included. Date Time Interrogation Session [id number] CV DEVICE CHECK Type Interrogation Session Remote Scheduled CV DEVICE CHECK Implantable Pulse Generator Radio Announcer BSX CV DEVICE CHECK Implantable Pulse Generator Type ILR CV DEVICE CHECK Implantable Pulse Generator Model M301 CV DEVICE CHECK Implantable Pulse Generator Serial Number [id number] CV DEVICE CHECK Implantable Pulse Generator Implant Date [id number] CV DEVICE CHECK Battery Status Beginning of Service CV DEVICE CHECK Date of Service 2025-03-06 CV DEVICE CHECK Anatomical Region Laterality Modality Device Interroga tion 02/21/2025 12:2 2 AM EDT Impressions 03/06/2025 7:47 AM EDT Normal Remote: No Events * This is a normal remote diagnostic device check * Alerts or events: None * Battery data was reviewed * Battery status: ANA, * Presenting rhythm reviewed * Heart Rate Histograms reviewed Narrative Procedure Note Cirilo Diallo MD - 03/06/2025 IMPRESSION: Normal Remote: No Events * This is a normal remote diagnostic device check * Alerts or events: None * Battery data was reviewed * Battery status: ANA, * Presenting rhythm reviewed * Heart Rate Histograms reviewed Cirilo Diallo MD CV IMPLANTABLE CARDIAC DEVICE PROCEDURES Final Result * (ABNORMAL) Basic metabolic panel (08/05/2024 11:27 [...] - 08/06/2024 9:07 AM EDT Performed at: 01 - [facility] [address] [id number] Concrete Sculptor: Monica Galvan MD, Phone: [phone] us Ian Joshua MD LAB BLOOD ORDERABLES Final Resul t [facility] 1 from Last 3 Months or Most Recently Relevant to Health Maintenance Insurance MEDICARE [facility] Care Teams Credit Negotiator Relationship Specialty Start Date End Date Ion Kwong MD [address] [place] [address] [address] [place] PCP - General 10/12/22
[2025-03-27 07:28] LABS: MANUAL DIFF FLAG NO
[2025-03-27 07:50] LABS: Hematocrit 46.6 % (42.0-52.0); Hemoglobin 15.5 g/dl (14.0-18.0); Imm Gran Abs Auto 0.02 X10*3/uL (0.00-0.03); Imm Gran Pct Auto 0.2 % (0.0-0.4); Lymphocytes Absolute Auto 3.6 X10*3/uL (1.2-4.9); Mean Corpuscular HGB Conc 33.3 g/dl (31.0-36.0); Mean Corpuscular Hemoglobin 30.5 pg (27.0-33.0); Mean Corpuscular Volume 91.6 fL (80.0-98.0); NRBC Abs Auto 0.000 X10*3/uL (0.0-0.012); NRBC Pct Auto 0.0 /100WBC (0.0-0.2); Platelet Count 186 X10*3/uL (160-400); Red Blood Count 5.09 X10*6/uL (4.60-5.80); White Blood Count 8.2 X10*3/uL (4.8-10.8)
[2025-03-27 07:52] LABS: Appearance Urine Clear; Glucose Urine UA Negative (Negative); PH 6.5 (5.0-9.0); Specific Gravity - Urine 1.010 (1.005-1.025); UMIC TRIGGER UACC YES
[2025-03-27 08:13] LABS: Alanine Aminotransferase 27 U/L (0-40); Albumin Level 4.9 g/dL (3.5-5.0); Alkaline Phosphatase 71 U/L (39-117); Anion Gap 11 (12-20); Aspartate Amino Transferase 23 U/L (5-37); Blood Urea Nitrogen 13 mg/dL (9-16); Calcium 9.2 mg/dL (8.4-10.2); Carbon Dioxide 28 mmol/L (22-29); Chloride 107 mmol/L (96-108); Cholesterol 151 mg/dL (<200); Estimated Glomerular Filt Rate > 60; HDL Cholesterol 57 mg/dL (>40); Potassium 3.8 mmol/L (3.3-5.1); Sodium 142 mmol/L (135-145); Total Protein 7.6 g/dL (6.5-8.0); Triglycerides 114 mg/dL (<150)
[2025-03-27 08:24] LABS: PSA,Total (Free>4and<10) 0.86 ng/mL (0.00-4.00)
== END 2025-03-27 07:14 | disposition home or self-care (01) ==
LOC: HO.LAB 07:13
PROVIDERS: PCP Internal Medicine
DX: Z12.5 Encounter for screening for malignant neoplasm of prostate (principal); I48.0 Paroxysmal atrial fibrillation; I63.9 Cerebral infarction, unspecified; G45.9 Transient cerebral ischemic attack, unspecified; K21.9 Gastro-esophageal reflux disease without esophagitis; R73.01 Impaired fasting glucose; E78.2 Mixed hyperlipidemia; I10 Essential (primary) hypertension
CPT/HCPCS: 36415; 80053; 80061; 81001; 81003; 84153; 84207; 84443; 85025

== ENCOUNTER 2025-04-30 13:09 | Outpatient (AMB) | payer MEDICARE, SELFPAY ==
--- NOTE | 2025-04-30 13:32 | A.OFFPC_ITS ---
Vital Signs 04/30/25 13:33 Height 5 ft 7 in Weight 157 lb 4 oz BMI 24.6 BP 110/60 Blood Pressure Location Lt brachial Position Sitting Respiration 18 Pulse 66 Pulse Source Pulse Oximeter Temp Source Temporal Artery Scan Pulse Oximetry (%) 98 Oxygen Delivery Method Room Air Intake Visit Reasons: HTN/AFIB/STROKE with Dr. Kwong Slps Required: No Accompanied by: Self / Same As Patient Allergies vaccine adjuvant system, AS01B lipo (Shingrix (PF)) Adverse Reaction (Unknown, Verified 04/30/25 13:48) flu-like symptoms, bruising, fever varicella-zoster virus glycoprotein (Shingrix (PF)) Adverse Reaction (Unknown, Verified 04/30/25 13:48) flu-like symptoms, bruising, fever Medication List - Last Reconciled 04/30/25 by Ion Kwong MD apixaban (Eliquis) 5 mg PO BID atorvastatin 10 mg PO BEDTIME 90 days bimatoprost 0.01% (Lumigan) 1 drp ophthalmic (eye) QPM brimonidine 0.1% 1 drp ophthalmic (eye) Q8H dorzolamide-timolol 22.3-6.8 mg/mL 1 drp ophthalmic (eye) BID lisinopril 20 mg PO DAILY metoprolol succinate ER 50 mg PO BID netarsudil 0.02% (Rhopressa) 1 drp ophthalmic (eye) QPM sildenafil 100 mg PO DAILY PRN Tobacco use date assessed: 04/30/25 Fall risk assessment: No Falls in past year Last assessed Fall Risk: 04/30/25 Dental Screening Dental Screen Date: 04/30/25 Did you have a dental visit in the last 12 months?: Yes Did you have a dental problem in the last 6 months where you did not have access to dental care?: No Was dental information given to patient?: Patient has dentist HPI HTN/AFIB/STROKE with Dr. Kwong HPI Details Patient comes in today for his follow up visit States that he feels okay He denies any headaches or dizziness Denies any chest pains, no SOB No nausea/vomiting, no abdominal pain No change in bowel habits noted States that cardiology adjusted/increased the dose of his Metoprolol ER earlier this year, reportedly based on something they saw on his loop recorder, and he is now taking 50 mg BID instead if 75 mg QD He had his follow up labs done last month - to discuss his results FORMERLY [facility], [facility] Medical History Paroxysmal atrial fibrillation Cryptogenic stroke Glaucoma of both eyes Erectile dysfunction GERD without esophagitis Impaired fasting glucose Mixed hyperlipidemia Benign essential hypertension Surgical History Hx of colonoscopy (~05/02/14) H/O basal cell carcinoma excision Family History Father Colon cancer Mother No problems noted. Social History Housing: House Alcohol intake: current Alcohol intake frequency: holidays/special occasions only Alcohol type: wine Patient Tobacco Use Status: Never used Tobacco e-Cigarette/Vaping Use: Never Used Second Hand Smoke Exposure: Yes service: Yes Current occupational status: retired Cognitive needs: No Hearing needs: No Vision needs: Yes (Reading glasses) Questionnaire Thrive Questionnaire Date Thrive assessed: 04/30/25 I am a: Patient What is your living situation today?: I have a steady place to live Within the past 12 months, did the food you bought not last and you didn't have the money to get more?: Never true Within the past 12 months, did you worry whether your food would run out before you got money to buy more?: Never true Do you have trouble paying for medicines?: No Do you have trouble getting transportation to medical appointments?: No Do you have trouble paying your heating and electricity bill?: No Do you have trouble taking care of your child, family member or friend?: No Do you have trouble with day-to-day activities such as bathing, preparing meals, shopping, managing finances, etc.?: No Are you currently unemployed and looking for a job?: No Are you interested in more education?: No Please select the resources that you would like help with: None Currently or been in a relationship where the following occur: No concerns reported THRIVE Score: 0 CARI-7 AMB Questionnaire CARI-7 Date CARI - 7 assessed: 10/29/24 Source: Developed by Drs. Iban LEleni Jackson, Vimal House and colleagues, with an educational daniel from [employer]. Review of Systems Const Denies chills, Denies fatigue, Denies fever(s) and Denies headache(s) ENT Denies dysphagia, Denies dizziness, Denies otalgia, Denies headache(s), Denies neck pain, Denies odynophagia and Denies sore throat Card Denies chest pain, Denies palpitations and Denies dyspnea Resp Denies chest congestion, Denies cough and Denies dyspnea GI Denies abdominal pain, Denies constipation, Denies dysphagia, Denies heartburn, Denies diarrhea, Denies nausea, Denies odynophagia and Denies vomiting Denies difficulty urinating, Denies dysuria, Denies nocturia and Denies urinary frequency Musc Denies back pain, Denies muscle weakness and Denies neck pain Skin/Breast Denies rash Neuro Denies dizziness and Denies headache(s) Endo Denies fatigue and Denies palpitations Physical exam (Primary Care) Vital Signs: Last Vital Signs Pulse 66 04/30/25 13:33 Resp 18 04/30/25 13:33 BP 110/60 04/30/25 13:33 Pulse Ox 98 04/30/25 13:33 Oxygen Delivery Method Room Air 04/30/25 13:33 BMI result Body Mass Index 24.6 Tobacco/Smoking Status: Tobacco use Status Tobacco use date assessed 04/30/25 04/30/25 13:40 Patient Tobacco Use Status Never used Tobacco 04/30/25 13:40 e-Cigarette/Vaping Use Never Used 04/30/25 13:40 Thrive Assessment: Date of Thrive Assessment Date Thrive assessed 04/30/25 04/30/25 13:40 Currently or been in a relationship where the following occur: No concerns reported Const General: no acute distress and alert HENMT Ears: TM's normal bilaterally and EAC's normal Throat: Yes posterior oropharynx normal and Yes tonsils normal (no TP congestion noted) Neck Neck: Yes no lymphadenopathy and Yes supple Thyroid: Thyroid normal Resp Auscultation: clear to auscultation bilaterally, no rales and no wheezes Cardio Rate: regular rate Rhythm: abnormal rhythm with ectopic beats Heart sounds: no murmurs GI Palpation (GI): Soft to palpation and nontender Auscultation: normal bowel sounds General: Yes no CVA tenderness Back/Spine/Pelvis Back: no CVA tenderness Thoracic/Lumbar Spine: No lumbar spinal tenderness Skin Rashes: no rashes Extrem General: Yes no clubbing, cyanosis or edema Results Reviewed Results Reviewed: Laboratory Tests 03/27/25 03/27/25 07:18 07:27 WBC 8.2 Hgb 15.5 Hct 46.6 Plt Count 186 Sodium 142 Potassium 3.8 Creatinine 1.10 Estimated GFR > 60 Fasting Glucose 105 H Calcium 9.2 AST 23 ALT 27 Triglycerides 114 Cholesterol 151 LDL Cholesterol, Calc 72 HDL Cholesterol 57 Total PSA 0.86 Vitamin B6 59.8 H TSH 3.49 Ur Specific [place] 1.010 Urine Protein Negative Urine Glucose (UA) Negative Urine Blood Negative Urine Nitrite Negative Ur Leukocyte Esterase Trace H Coding Level of Care Code Est Pt Level 4 (94891) Diagnoses Cryptogenic stroke I63.9 Mixed hyperlipidemia E78.2 Benign essential hypertension I10 Impaired fasting glucose R73.01 GERD without esophagitis K21.9 Erectile dysfunction, unspecified erectile dysfunction type N52.9 Erectile dysfunction type: unspecified Glaucoma of both eyes, unspecified glaucoma type H40.9 Glaucoma type: unspecified Assessment & Plan Assessment & Plan (1) Cryptogenic stroke: Code(s): I63.9 - Cerebral infarction, unspecified Category: Medical Plan: Brain MRI done at [facility] on 04/24/22 revealed (+) scattered right frontal aubacute cortical infarct without hemorrhagic transformation and chronic right pontine and right cerebellar lacunar infarcts and chronic medial left frontal lobe infarct S/P dual antiplatelet Tx with Clopidogrel x 3 weeks, after which Clopidogrel was discontinued 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 done previously was negative for AF or arrhythmias; echocardiogram showed normal EF, no intracardiac thrombus but left atrium was mildly dilated He was seen by [facility] for follow up and was advised further evaluation of his CVA etiology with an implantable loop recorder States that his Metoprolol ER was changed from 75 mg QD to 50 mg BID after he had his recorder done as he recalls being told that his recorder showed some abnormality but he could not remember the details of his conversation back then - recorder probably showed (+) PAF He currently remains on Eliquis 5 mg BID; his Aspirin 81 mg was discontinued a while back when he was started on Eliquis Follow up with cardiology at [place] as scheduled (2) Mixed hyperlipidemia: Code(s): E78.2 - Mixed hyperlipidemia Category: Medical Plan: Results of his labs done last month reviewed and discussed with patient Reinforced low cholesterol diet Continue Atorvastatin 10 mg QD Will recheck his labs and fasting lipids in 6 months for follow up (3) Benign essential hypertension: Code(s): I10 - Essential (primary) hypertension Category: Medical Plan: Reinforced low sodium diet - goal is systolic BP of at least 140 to 150 mm or less Continue Lisinopril 20 mg QD and Metoprolol ER 50 mg BID (dose was raised again by cardiology earlier this year) (4) Impaired fasting glucose: Code(s): R73.01 - Impaired fasting glucose Category: Medical Plan: His HgbA1c remains normal at 5.6% on his recent labs Reinforced low calorie diet/exercise as tolerated (5) GERD without esophagitis: Code(s): K21.9 - Gastro-esophageal reflux disease without esophagitis Category: Medical Plan: Dietary restrictions reinforced (6) Erectile dysfunction: Code(s): N52.9 - Male erectile dysfunction, unspecified Category: Medical Qualifiers: Erectile dysfunction type: unspecified Qualified Code(s): N52.9 - Male erectile dysfunction, unspecified Plan: Continue Sildenafil 100 mg QD PRN (7) Glaucoma of both eyes: Code(s): H40.9 - Unspecified glaucoma Category: Medical Qualifiers: Glaucoma type: unspecified Qualified Code(s): H40.9 - Unspecified glaucoma Plan: Continue Alphagan 0.15% 1 drop into each eye 3 times a day, Cosopt 1 drop into each eye twice a day, Lumigan 1 drop into each eye Q 8 hours and Rhopressa 0.02% 1 drop into each eye Q PM Follow up with Ophthalmology (Dr. Kwok) as scheduled Plan Follow up in 6 months Orders: Orders Complete Blood Count Auto Diff 6 Months D64.9 - Anemia, unspecified Lipid Panel 6 Months E78.00 - Pure hypercholesterolemia, unspecified UA CC w/rflx Micro + Cult 6 Months R30.0 - Dysuria Comprehensive [place]. Panel Fast 6 Months E78.00 - Pure hypercholesterolemia, unspecified TSH reflex Free T4 6 Months E78.00 - Pure hypercholesterolemia, unspecified Vitamin D 25-OH Total 6 Months E55.9 - Vitamin D deficiency, unspecified Vitamin B12 and Folate 6 Months E53.8 - Deficiency of other specified B group vitamins Hemoglobin A1c 6 Months R73.01 - Impaired fasting glucose
[2025-04-30 13:33] VITALS: BP 110/60; PULSE 66; RESP 18; O2SAT 98; BMI 24.6
--- OUTSIDE RECORDS SUMMARY | 2025-04-30 17:19 | XMS_ITS ---
Author Name Dawna Peña Address Unknown Organization [facility] Care Team Providers Care Budget Coordinator Name Role Phone Unavailable Primary Care Physician Unavailab le History Of Present Illness This is a 79 year old male who is an established patient who is being seen for an evaluation of skin lesions.Location: body throughoutQuality: asymptomaticDuration: yearsPertinent History: melanoma (see interval history) and basal cell skin cancer Additional Visit Reasons: surveillance against skin cancer recurrences Medications Medication Generic Name RxNorm Strength Strength Unit Route Dose Dose Form Frequency Date Started Date Ended Status Indication Sig Alphagan P 0.1 % Ophtha lmic (eye) 1 drops once daily active dorzolamide -timolol 7030705 22.3-6.8 mg/mL Ophtha lmic (eye) 1 drops once daily active Lumigan 4535265 0.01 % Ophtha lmic (eye) 1 drops once daily active Rhopressa 0.02 % Ophtha lmic (eye) 1 drops once daily active atorvastati n atorvast atin 10 mg Oral 1 table t once daily active Eliquis 1296273 5 mg Oral 1 table t twice daily active lisinopril 555946 20 mg Oral 1 table t once daily active metoprolol succinate 774601 50 mg Oral 1 Table t, Exten ded Relea se 24 hr twice daily active Plavix clopidog rel 75 mg Oral table t suspend ed nitroglycer in nitrogly cerin 839732 2 % Transd ermal ointm ent 04/29/20 25 active Appl y to ear bid- prn Latanoprost NULL 04/17/20 14 active PredniSONE NULL 04/22/20 15 active Problems Problem Code Type Status Date of Diagnosis Date of Resolution History of clinical finding in subject (situation) 341832446( SNOMED) Problem active Perichondritis (disorder) 07403874(S NOMED) Diagnosis active 09/19/2018 Other specified health status Z78.9(ICD- 10) Diagnosis active 08/29/2018 Senile hyperkeratosis (disorder) 090302425( SNOMED) Diagnosis active 08/29/2018 Actinic keratosis (disorder) 068445418( SNOMED) Problem active Surgical follow-up (finding) 939434647( SNOMED) Diagnosis active 10/16/2017 Basal cell carcinoma of skin (disorder) 298191437( SNOMED) Problem active Basal cell carcinoma of skin (disorder) 827121382( SNOMED) Diagnosis active 09/20/2017 Other specified health status Z78.9(ICD- 10) Diagnosis active 08/17/2017 Neoplasm of uncertain behavior of skin (disorder) 17957498(S NOMED) Diagnosis active 08/17/2017 Senile hyperkeratosis (disorder) 576663410( SNOMED) Diagnosis active 04/28/2016 Other specified health status Z78.9(ICD- 10) Diagnosis active 04/22/2015 Senile hyperkeratosis (disorder) 399450696( SNOMED) Diagnosis active 04/22/2015 Senile hyperkeratosis (disorder) 312378853( SNOMED) Diagnosis active 04/17/2014 Actinic keratosis L57.0(ICD- 10) Diagnosis active 03/05/2019 Chondritis of left external ear H61.032(IC D-10) Diagnosis active 03/05/2019 Personal history of other malignant neoplasm of skin Z85.828(IC D-10) Diagnosis active 03/05/2019 Personal history of diseases of the skin and subcutaneous tissue Z87.2(ICD- 10) Diagnosis active 03/05/2019 Melanocytic nevi, unspecified D22.9(ICD- 10) Diagnosis active 03/05/2019 Melanocytic nevi of trunk D22.5(ICD- 10) Diagnosis active 03/05/2019 Other seborrheic keratosis L82.1(ICD- 10) Diagnosis active 03/05/2019 Increased blood pressure (finding) 92730985(S NOMED) Problem active Neoplasm of uncertain behavior of skin D48.5(ICD- 10) Diagnosis active 03/30/2020 Actinic keratosis L57.0(ICD- 10) Diagnosis active 03/30/2020 Melanocytic nevi of trunk D22.5(ICD- 10) Diagnosis active 03/30/2020 Personal history of other malignant neoplasm of skin Z85.828(IC D-10) Diagnosis active 03/30/2020 Other seborrheic keratosis L82.1(ICD- 10) Diagnosis active 03/30/2020 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(ICD -10) Diagnosis active 04/24/2020 Encounter for surgical aftercare following surgery on the skin and subcutaneous tissue Z48.817(IC D-10) Diagnosis active 05/11/2020 Actinic keratosis (disorder) 620276657( SNOMED) Diagnosis active 12/28/2020 Melanocytic nevus of lower limb (disorder) 726065684( SNOMED) Diagnosis active 12/28/2020 Melanocytic nevus of trunk (disorder) 131854939( SNOMED) Diagnosis active 12/28/2020 Skin changes due to chronic exposure to non-ionizing radiation (disorder) 146648459( SNOMED) Diagnosis active 12/28/2020 Seborrheic keratosis (disorder) 051462732( SNOMED) Diagnosis active 12/28/2020 History of malignant melanoma of the skin (situation) 1802531779 08(SNOMED) Diagnosis active 12/28/2020 Melanocytic nevus of trunk (disorder) 465944831( SNOMED) Diagnosis active 08/31/2021 Melanocytic nevus of lower limb (disorder) 602074241( SNOMED) Diagnosis active 08/31/2021 Melanocytic nevus of left lower limb (disorder) 1386870949 30454(SNOM ED) Diagnosis active 08/31/2021 Seborrheic dermatitis (disorder) 86146526(S NOMED) Diagnosis active 08/31/2021 Seborrheic keratosis (disorder) 356756423( SNOMED) Diagnosis active 08/31/2021 History of melanoma in situ of skin (situation) 6274889745 106(SNOMED ) Diagnosis active 08/31/2021 History of malignant neoplasm of skin (situation) 967882875( SNOMED) Diagnosis active 08/31/2021 Neoplasm of uncertain behavior of skin (disorder) 41271633(S NOMED) Diagnosis active 03/28/2022 Inflamed seborrheic keratosis (disorder) 205134148( SNOMED) Diagnosis active 03/28/2022 Melanocytic nevus of trunk (disorder) 461019986( SNOMED) Diagnosis active 03/28/2022 Melanocytic nevus of lower limb (disorder) 325347889( SNOMED) Diagnosis active 03/28/2022 Melanocytic nevus of left lower limb (disorder) 7200987042 79876(SNOM ED) Diagnosis active 03/28/2022 Melanocytic nevus of right upper limb (disorder) 868238148( SNOMED) Diagnosis active 03/28/2022 Inflammatory disorder of cartilage (disorder) 125788827( SNOMED) Diagnosis active 03/28/2022 History of melanoma in situ of skin (situation) 0718620957 106(SNOMED ) Diagnosis active 03/28/2022 History of malignant neoplasm of skin (situation) 324257810( SNOMED) Diagnosis active 03/28/2022 Seborrheic keratosis (disorder) 045736303( SNOMED) Diagnosis active 03/28/2022 Basal cell carcinoma of skin (disorder) 381352211( SNOMED) Diagnosis active 05/24/2022 Verruca vulgaris (disorder) 25568952(S NOMED) Diagnosis active 05/24/2022 Dysplastic nevus of skin (disorder) 127543732( SNOMED) Problem active Malignant melanoma (disorder) 529244780( SNOMED) Problem active Melanocytic nevus of lower limb (disorder) 852054144( SNOMED) Diagnosis active 10/18/2022 Melanocytic nevus of trunk (disorder) 341302521( SNOMED) Diagnosis active 10/18/2022 History of melanoma in situ of skin (situation) 4579546063 106(SNOMED ) Diagnosis active 10/18/2022 History of malignant neoplasm of skin (situation) 242756923( SNOMED) Diagnosis active 10/18/2022 Seborrheic keratosis (disorder) 799169456( SNOMED) Diagnosis active 10/18/2022 Hypercholesterolemia (disorder) 20583429(S NOMED) Problem active Actinic keratosis (disorder) 507155195( SNOMED) Diagnosis active 05/02/2023 Melanocytic nevus of lower limb (disorder) 521849105( SNOMED) Diagnosis active 05/02/2023 Melanocytic nevus of trunk (disorder) 311525665( SNOMED) Diagnosis active 05/02/2023 Seborrheic keratosis (disorder) 864725330( SNOMED) Diagnosis active 05/02/2023 History of melanoma in situ of skin (situation) 2606106580 106(SNOMED ) Diagnosis active 05/02/2023 History of malignant neoplasm of skin (situation) 041305602( SNOMED) Diagnosis active 05/02/2023 Actinic keratosis (disorder) ( SNOMED) Diagnosis active 11/06/2023 Inflamed seborrheic keratosis (disorder) 763181119( SNOMED) Diagnosis active 11/06/2023 Melanocytic nevus of right lower limb (disorder) 4582767957 55310(SNOM ED) Diagnosis active 11/06/2023 Melanocytic nevus of trunk (disorder) 202782818( SNOMED) Diagnosis active 11/06/2023 Seborrheic keratosis (disorder) 966295344( SNOMED) Diagnosis active 11/06/2023 Skin changes due to chronic exposure to non-ionizing radiation (disorder) ( SNOMED) Diagnosis active 11/06/2023 History of malignant neoplasm of skin (situation) 981435309( SNOMED) Diagnosis active 11/06/2023 History of melanoma in situ of skin (situation) 4275038506 106(SNOMED ) Diagnosis active 11/06/2023 Neoplasm of uncertain behavior of skin (disorder) 32533583(S NOMED) Diagnosis active 04/29/2024 Actinic keratosis (disorder) ( SNOMED) Diagnosis active 04/29/2024 Melanocytic nevus of right lower limb (disorder) 6677626487 95106(SNOM ED) Diagnosis active 04/29/2024 Melanocytic nevus of trunk (disorder) 074394221( SNOMED) Diagnosis active 04/29/2024 Seborrheic keratosis (disorder) 354315675( SNOMED) Diagnosis active 04/29/2024 Skin changes due to chronic exposure to non-ionizing radiation (disorder) ( SNOMED) Diagnosis active 04/29/2024 History of malignant neoplasm of skin (situation) 946664844( SNOMED) Diagnosis active 04/29/2024 History of melanoma in situ of skin (situation) 9439700427 106(SNOMED ) Diagnosis active 04/29/2024 Actinic keratosis (disorder) ( SNOMED) Diagnosis active 11/05/2024 Melanocytic nevus of right lower limb (disorder) 0072673732 77749(SNOM ED) Diagnosis active 11/05/2024 Melanocytic nevus of trunk (disorder) 018695014( SNOMED) Diagnosis active 11/05/2024 Seborrheic keratosis (disorder) 944973367( SNOMED) Diagnosis active 11/05/2024 Skin changes due to chronic exposure to non-ionizing radiation (disorder) 944609357( SNOMED) Diagnosis active 11/05/2024 History of malignant neoplasm of skin (situation) 994275487( SNOMED) Diagnosis active 11/05/2024 History of melanoma in situ of skin (situation) 2781494802 106(SNOMED ) Diagnosis active 11/05/2024 Actinic keratosis (disorder) 060954495( SNOMED) Diagnosis active 04/29/2025 Inflammatory disorder of cartilage (disorder) 240974798( SNOMED) Diagnosis active 04/29/2025 Melanocytic nevus of trunk (disorder) 769461346( SNOMED) Diagnosis active 04/29/2025 Melanocytic nevus of right lower limb (disorder) 3623108312 81980(SNOM ED) Diagnosis active 04/29/2025 Seborrheic keratosis (disorder) 051073246( SNOMED) Diagnosis active 04/29/2025 Skin changes due to chronic exposure to non-ionizing radiation (disorder) 329638225( SNOMED) Diagnosis active 04/29/2025 History of malignant neoplasm of skin (situation) 420526640( SNOMED) Diagnosis active 04/29/2025 History of melanoma in situ of skin (situation) 5740862470 106(SNOMED ) Diagnosis active 04/29/2025 Results No data Encounters Service provided at [address], [place] [address], [place], [place] [id number]. Office phone number is [phone]. Office fax number is [phone]. 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)Benign Appearing Nevi (D22.5)Blue Nevus (D22.71)Seborrheic Keratoses (L82.1)Dermatoheliosis (L57.8)History of Basal Cell Carcinoma (Z85.828)Personal History of Malignant Melanoma in situ (Z86.006) [place] 04/29/2025 19:15:00 [place] [id number] Reason For Referral No data Procedures Procedure Date Destruction of premalignant skin lesion (procedure) 04/29/2025 12:00 am UTC Documentation of current medications (pr ocedure) 04/01/2025 12:00 am UTC Documentation of current medications (pr ocedure) 11/05/2024 12:00 am UTC Destruction of premalignant skin lesion (procedure) 11/05/2024 12:00 am UTC Shave biopsy (procedure) 04/29/2024 12:0 0 am UTC Destruction of premalignant skin lesion (procedure) 04/29/2024 12:00 am UTC Cryotherapy of skin lesion with liquid n itrogen (procedure) 11/06/2023 12:00 am UTC Destruction of premalignant skin lesion (procedure) 11/06/2023 12:00 am UTC Shave biopsy (procedure) 03/28/2022 12:0 0 am UTC Cryotherapy of skin lesion with liquid n itrogen (procedure) 03/28/2022 12:00 am UTC Cryotherapy of skin lesion with liquid n itrogen (procedure) 12/28/2020 12:00 am UTC Excision (procedure) 04/24/2020 12:00 am UTC Cryotherapy of skin lesion with liquid n itrogen (procedure) 03/30/2020 12:00 am UTC Shave biopsy (procedure) 03/30/2020 12:0 0 am UTC Documentation of past medical history (p rocedure) Documentation of past medical history (p rocedure) Documentation of past medical history (p rocedure) Documentation of past medical history (p rocedure) Documentation of past medical history (p rocedure) Documentation of past medical history (p rocedure) Documentation of past medical history (p rocedure) Documentation of past medica l history (procedure) [id number] - implanted 04/21-of a s light stroke 05/05 Review Of Systems Provider reviewed on Apr 29, 2025.A focused review of systems was performed including Integumentary.No Problems With Healing And No Problems With Scarring (hypertrophic Or Keloid). 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 Patient does have difficulty lying on that side at night. He will give topical nitroglycerin ointment 2 times daily a tryPrescription: nitroglycerin 2 % transdermal ointment Transdermal3.Benign Appearing NeviCounseling4.Blue NevusReassurance5.Seborrheic KeratosesReassurance6.Dermatoheliosis Counseling7.History of Basal Cell CarcinomaReassurance8.Personal History of Malignant Melanoma in situReassurance Plan of Care Future visit for 10/14/2025 - Follow up in 6 months. Other Instructions: Cse. Other Instructions: Cse. Code Detail Instructions 325231 nitroglycerin 2 % transdermal oi ntment Apply to ear bid-prn 096321 Efudex 5 % topical cream Apply t o lef tear bid x 3 weeks 0635220 triamcinolone aceton guevara 0.1 % topical cream Apply to ear rash bid prn not to exceed 2 weeks at a time 3019823 doxycycline hyclate 100 mg capsu le Take 1 cap po twice a day x 5 days with food and glass of water Instructions * I counseled the patient regarding the following:Handout on nicotinamide was provided to patient. Patient can check with pharmacy and PCP if this is suitable to take.Patient will discuss starting nicotinamide with PCPI recommended the following: Nicotinamide (Vitamin B3) Supplementation * I counseled the patient regarding the following:Instructions: Periodic self- skin checks to monitor for any changes in moles are recommended.Contact Office if: Any moles change in size, shape or color; itch, burn or bleed. * I counseled the patient regarding the following:This is best managed by using broad-spectrum sunscreen and protective clothingI recommended the following: Broad Spectrum Sunscreen SPF 30+ Social History Code Activity Start Date End Date 274318453 (SNOMED) Never smoker Sex Male Sexual orientation Unspecified Gender identity Unspecified Vital Signs No data Insurances Coverage Status Coverage Type Relationship to Subscriber Member Identifier Subscriber Identifier Group Identifier Payer Identifier Active 1 Self [id number] Active 2 Self [id number]
--- OUTSIDE RECORDS SUMMARY | 2025-04-30 17:19 | XMS_ITS | Patient Health Record ---
Author Organization [facility] Address [address] [place] [address] Care Team Providers Care Metrology Manager Name Role Phone Tiburcio (RETIRED) Ulises ZUNIGA [...] Date End Date Status Lisinopril 20 MG Tablet 1 tablet Orally Once a day Active Dorzolamide HCl-Timolol Mal 22.3-6.8 MG/ML Solution 1 drop into affected eye Ophthalmic Twice a day Active Metoprolol Succinate ER 25 MG Tablet Extended Release 24 Hour 1 tablet Orally Once a day Active Alphagan P 0.15 % Solution 1 drop into a ffected eye Ophthalmic Three times a day Active Lumigan 0.01 % Solution 1 drop into affe cted eye in the evening Ophthalmic Once a day Active Niacin 250 MG Tablet 1 tablet Orally Onc e a day Active Aspirin 81 MG Tablet Chewable 1 tablet Orally Once a day Active Social History Social History Additional Details Category Social Info Options Details Miscellaneous: Marital status: Occupation: retired Problems Problem Type SNOMED Code ICD Code Onset Dates Problem Status W/U Status Risk Notes Problem Colon cancer screening (466489266) Colon cancer screening (V76.51) Active confirmed Problem Long-term current use of aspirin (8680832403863 03) Aspirin long-term use (V58.66) Active confirmed Plan Of Treatment Future Test Test Name Order Date COLONOSCOPY 02/05/2014 Insurance Providers Payer Name Payer Address Payer Phone Subscriber Number Group Number Insured Name Patient Relationship to Insured Coverage Start Date Coverage End Date MEDICARE OF [place] [address] [place] [address] [phone] [id number] SHAY MANNING Self - patient is the insured [employer] ATT[employer] CLAIMS [address] [place] [address] [id number] SHAY MANNING Self - patient is the insured Medical (General) History Medical History History ICD Code colonoscopy 02/13/2004 hypertension glaucoma Denies [place],DM,CVA,Lung disease,renal dise ase hyperlipidemia Surgical History Surgery Date(Month/Year) eye surgery
--- OUTSIDE RECORDS SUMMARY | 2025-04-30 17:20 | XMS_ITS | Clinical Summary ---
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 Echocardiogram was reviewed and did not demonstrate any concerning findings. ILR demonstrated paroxysmal atrial fibrillation. The patient is appropriately taking anticoagulation for thromboembolic prophylaxis Encounters Date Type Department Care Team Description 04/17/2025 8:30 PM EST Ancillary Procedure [facility] Cardiology [facility] [address] [place] [address] 03/28/2025 10:15 PM EST Ancillary Procedure [facility] Cardiology [facility] [address] [place] [address] 03/06/2025 1:25 PM EDT Ancillary Procedure [facility] Cardiology [facility] [address] [place] [address] from Last 3 Months Medical History Medical [...] on file Sexual Orientation Not on file Last Filed Vital Signs Vital Sign Reading [...] Description 06/10/2025 1:10 PM EST Office Visit [facility] [address] [facility] [address] [place] [address] Juanpablo Foley NP [address] [place] [address] [address] [place] [address] Health Maintenance Due Date Last Done Comments [...] this topic Medical Devices Implanted Type Area [employer] Device Identifier Shelf Expiration Date Model / Serial / Lot Bsci-Crm [id number] Implanted:12/2022 (Quantity not on file) Cardiac Loop Recorder LXSN CARD RHYTHM MGMT M301 / [id number] / Procedures Procedure Name Priority Date/Time Associated Diagnosis Comments CARDIAC DEVICE CHECK- REMOTE- MURJ Routine 04/17/2025 8:25 PM EST CARDIAC DEVICE CHECK- REMOTE- MURJ Routine 03/28/2025 10:14 PM EST CARDIAC DEVICE CHECK- REMOTE- MURJ Routine 03/06/2025 1:23 PM EDT BASIC METABOLIC PANEL Routine 08/05/2024 11:27 AM EDT from Last 3 Months or Most Recently Relevant to Health Maintenance Results * Cardiac device check - Remote- MURJ (04/17/2025 8:25 PM EST) Only the most recent of3 resultswithin the time period is included. Date Time Interrogation Session [id number] CV DEVICE CHECK Type Interrogation Session Remote Scheduled CV DEVICE CHECK Implantable Pulse Generator [place] [employer] BSX CV DEVICE CHECK Implantable Pulse Generator Type ILR CV DEVICE CHECK Implantable Pulse Generator Model M301 CV DEVICE CHECK Implantable Pulse Generator Serial Number [id number] CV DEVICE CHECK Implantable Pulse Generator Implant Date [id number] CV DEVICE CHECK Battery Status Beginning of Service CV DEVICE CHECK Date of Service 2025-05-07 CV DEVICE CHECK Anatomical Region Laterality Modality Device Interroga tion 04/14/2025 12:2 8 AM EST Impressions 04/16/2025 5:16 PM EST Normal Remote: No Events * This is a normal remote diagnostic device check * Alerts or events: None * Battery data was reviewed * Battery status: ANA, * Presenting rhythm reviewed * Heart Rate Histograms reviewed Narrative Procedure Note Cirilo Diallo MD - 04/17/2025 IMPRESSION: Normal Remote: No Events * This is a normal remote diagnostic device check * Alerts or events: None * Battery data was reviewed * Battery status: ANA, * Presenting rhythm reviewed * Heart Rate Histograms reviewed Cirilo Diallo MD CV IMPLANTABLE CARDIAC DEVICE PROCEDURES Final Result * (ABNORMAL) Basic metabolic panel (08/05/2024 11:27 AM EDT) Pathologist [facility] Glucose 101(H) 70 - 99 mg/dL [facility] [...] 9:07 AM EDT Performed at: 01 - [address] [id number] Pot Maker: Monica Galvan MD, Phone: [phone] us Ian Joshua MD LAB BLOOD ORDERABLES Final Resul t [facility] 1 from Last 3 Months or Most Recently Relevant to Health Maintenance Insurance MEDICARE [facility] Care Teams Animal Ecologist Relationship Specialty Start Date End Date Ion Kwong MD [address] [place] [address] [address] [place], [place] PCP - General 10/12/22
== END 2025-04-30 14:11 | disposition home or self-care (01) ==
LOC: HO.HMCH 13:10
PROVIDERS: PCP Internal Medicine; Visit Provider Internal Medicine
DX: I63.9 Cerebral infarction, unspecified (principal); E78.2 Mixed hyperlipidemia; I10 Essential (primary) hypertension; R73.01 Impaired fasting glucose; K21.9 Gastro-esophageal reflux disease without esophagitis; N52.9 Male erectile dysfunction, unspecified; H40.9 Unspecified glaucoma

== ENCOUNTER → 2025-04-30 13:09 | Outpatient (BNVA) | payer MEDICARE, SELFPAY | PROVIDERS: PCP Internal Medicine; Visit Provider Internal Medicine | DX: I10 Essential (primary) hypertension (principal); E78.2 Mixed hyperlipidemia; I63.9 Cerebral infarction, unspecified; R73.01 Impaired fasting glucose; N52.9 Male erectile dysfunction, unspecified; K21.9 Gastro-esophageal reflux disease without esophagitis; H40.9 Unspecified glaucoma; Z79.899 Other long term (current) drug therapy | CPT/HCPCS: 99212 ==